=== PATIENT | female | born 1965 | race Two or more races ===

== ENCOUNTER 2019-06-06 17:24 | Emergency (ER) | payer SELFPAY ==
[~2019-06-06] VITALS: Ht 149.9 cm; Wt 74.0 kg
[2019-06-06 18:23] LABS: BILIRUBIN,URINE NEGATIVE (NEG); CLARITY,URINE CLEAR; COLOR,URINE YELLOW; NITRITE,URINE NEGATIVE (NEG); PH,URINE 7.5; PROTEIN,URINE >=300 mg/dL (NEG-TRACE); UROBILINOGEN,URINE 0.2 mg/dL (0.2 mg/dL)
[2019-06-06 18:29] LABS: BACTERIA,URINE FEW /HPF (0-FEW); SQUAMOUS EPITHELIAL CELL,UR OCC /LPF
[2019-06-06] MEDS ORDERED: ONDANSETRON PF 4 MG/2 ML VIAL. IV ONE (19:00)
[2019-06-06] MEDS ORDERED: MORPHINE SULFATE 10 MG/ML VIAL. IV STA (19:00)
[2019-06-06] MEDS ORDERED: IV NORMAL SALINE 1000ML BAG 1,000 ML IV STA (19:01)
--- NOTE | 2019-06-06 19:12 | PHYS DOC ---
Past Medical History Past Medical History: Diabetes-Type II, High Cholesterol, Hypertension (GAEL DEL RIO APRN) Past Surgical History: , Other Additional Past Surgical Histo: eye (GAEL DEL RIO APRN) Smoking Status: Never Smoker Alcohol Use: None (GAEL DEL RIO APRN) Attending Signature I have participated in the care of this patient and I have reviewed and agree with all pertinent clinical information above including history, exam, and recommendations. (KEITH KIRKPATRICK MD) Adult General Chief Complaint Chief Complaint: ABDOMINAL PAIN HPI HPI Patient is a 53 year old female who presents with left flank pain that started on . The patient states the pain has not gone away. The patient states she has a history diabetes, hypertension, dyslipidemia. The patient states that she is on her period currently. She states that her pain is 10 out of 10 in severity when she moves and sharp. Denies additional symptoms. Denies fever, denies nausea, vomiting, diarrhea. Complete ROS were reviewed and found to be within normal limits, except as documented in the HPI (GAEL DEL RIO APRN) Current Medications Current Medications Current Medications Medications (Trade) Dose Ordered Sig/Tg Start Time Stop Time Status Last Admin Dose Admin Info (CONTRAST GIVEN -- Rx MONITORING) 1 each PRN DAILY PRN 06/06/19 20:15 06/06/19 21:39 DC Iohexol (Omnipaque 300 Mg/ml) 60 ml 1X ONCE 06/06/19 20:15 06/06/19 20:16 DC 06/06/19 20:22 60 ML Morphine Sulfate (Morphine Sulfate) 5 mg 1X STAT 06/06/19 19:00 06/06/19 19:07 DC 06/06/19 19:18 5 MG Ondansetron HCl (Zofran) 4 mg 1X ONCE 06/06/19 19:00 06/06/19 19:07 DC 06/06/19 19:18 4 MG Sodium Chloride 1,000 ml @ 1,000 mls/hr 1X STAT 06/06/19 19:01 06/06/19 20:00 DC 06/06/19 19:17 1,000 MLS/HR (KEITH KIRKPATRICK MD) Allergies Allergies Allergies Coded Allergies Type Severity Reaction Last Updated Verified No Known Drug Allergies 06/06/19 No (KEITH KIRKPATRICK MD) Physical Exam Physical Exam Constitutional: Well developed, well nourished, no acute distress, non-toxic appearance. [] HENT: Normocephalic, atraumatic, bilateral external ears normal, oropharynx moist, no oral exudates, nose normal. [] Eyes: PERRLA, EOMI, conjunctiva normal, no discharge. [] Neck: Normal range of motion, no tenderness, supple, no stridor. [] Cardiovascular:Heart rate regular rhythm, no murmur [] Lungs & Thorax: Bilateral breath sounds clear to auscultation [] Abdomen: Bowel sounds normal, soft, tenderness to L flank, no masses, no pulsatile masses. [] Skin: Warm, dry, no erythema, no rash. [] Back: No tenderness, no CVA tenderness. [] Extremities: No tenderness, no cyanosis, no clubbing, ROM intact, no edema. [] Neurologic: Alert and oriented X 3, normal motor function, normal sensory function, no focal deficits noted. [] Psychologic: Affect normal, judgement normal, mood normal. [] (GAEL DEL RIO APRN) Current Patient Data Vital Signs Vital Signs Date Time Temp Pulse Resp B/P (MAP) Pulse Ox O2 Delivery O2 Flow Rate FiO2 06/06/19 21:32 78 18 189/86 (120) 94 Room Air 06/06/19 17:55 98.0 98.0 (KEITH KIRKPATRICK MD) Lab Values Laboratory Tests Test 06/06/19 17:57 06/06/19 19:15 06/06/19 19:45 Urine Color Yellow Urine Clarity Clear Urine pH 7.5 Urine Specific [place] 1.010 Urine Protein >=300 mg/dL (NEG-TRACE) Urine Glucose (UA) >=1000 mg/dL (NEG) Urine Ketones (Stick) Negative mg/dL (NEG) Urine Blood Moderate (NEG) Urine Nitrite Negative (NEG) Urine Bilirubin Negative (NEG) Urine Urobilinogen Dipstick 0.2 mg/dL (0.2 mg/dL) Urine Leukocyte Esterase Negative (NEG) Urine RBC 3-5 /HPF (0-2) Urine WBC 1-4 /HPF (0-4) Urine Squamous Epithelial Cells Occ /LPF Urine Bacteria Few /HPF (0-FEW) White Blood Count 8.6 x10^3/uL (4.0-11.0) Red Blood Count 4.11 x10^6/uL (3.50-5.40) Hemoglobin 11.2 g/dL (12.0-15.5) L Hematocrit 33.0 % (36.0-47.0) L Mean Corpuscular Volume 80 fL (79-100) Mean Corpuscular Hemoglobin 27 pg (25-35) Mean Corpuscular Hemoglobin Concent 34 g/dL (31-37) Red Cell Distribution Width 13.5 % (11.5-14.5) Platelet Count 413 x10^3/uL (140-400) H Neutrophils (%) (Auto) 62 % (31-73) Lymphocytes (%) (Auto) 25 % (24-48) Monocytes (%) (Auto) 8 % (0-9) Eosinophils (%) (Auto) 3 % (0-3) Basophils (%) (Auto) 1 % (0-3) Neutrophils # (Auto) 5.3 x10^3/uL (1.8-7.7) Lymphocytes # (Auto) 2.2 x10^3/uL (1.0-4.8) Monocytes # (Auto) 0.7 x10^3/uL (0.0-1.1) Eosinophils # (Auto) 0.3 x10^3/uL (0.0-0.7) Basophils # (Auto) 0.1 x10^3/uL (0.0-0.2) Sodium Level 135 mmol/L (136-145) L Potassium Level 4.6 mmol/L (3.5-5.1) Chloride Level 100 mmol/L (98-107) Carbon Dioxide Level 29 mmol/L (21-32) Anion Gap 6 (6-14) Blood Urea Nitrogen 17 mg/dL (7-20) Creatinine 1.0 mg/dL (0.6-1.0) Estimated GFR (Cockcroft-Gault) 58.5 BUN/Creatinine Ratio 17 (6-20) Glucose Level 267 mg/dL (70-99) H Calcium Level 9.2 mg/dL (8.5-10.1) Total Bilirubin 0.3 mg/dL (0.2-1.0) Aspartate Amino Transferase (AST) 11 U/L (15-37) L Alanine Aminotransferase (ALT) 13 U/L (14-59) L Alkaline Phosphatase 88 U/L (46-116) Total Protein 5.9 g/dL (6.4-8.2) L Albumin 2.1 g/dL (3.4-5.0) L Albumin/Globulin Ratio 0.6 (1.0-1.7) L Lipase 142 U/L (73-393) Laboratory Tests 06/06/19 19:15 Laboratory Tests 06/06/19 19:45 (KEITH KIRKPATRICK MD) EKG EKG [] (GAEL DEL RIO APRN) Radiology/Procedures Radiology/Procedures [][facility] [address] [place] [address] IMAGING REPORT Signed PATIENT: LEXI RODRÍGUEZ ACCOUNT: [id number] : 1965 LOCATION: ER AGE: 53 SEX: F EXAM STATUS: REG ER ORD. PHYSICIAN: GAEL DEL RIO APRN REASON: L flank pain, LLQ PAIN PROCEDURE: CT ABD PELV W/ IV CONTRST ONLY EXAM: CT Abdomen and Pelvis with IV contrast CLINICAL HISTORY: Left flank pain, left lower quadrant pain. COMPARISON: none TECHNIQUE: Helical CT of the abdomen and pelvis was performed following the administration of intravenous contrast. Axial, coronal and sagittal reformatted images were generated. PQRS compliance statement - One or more of the following individualized dose reduction techniques were utilized for this study: 1. Automated exposure control 2. Adjustment of the mA and/or kV according to patient size 3. Use of iterative reconstruction technique FINDINGS: Lower chest: Linear opacities in the lower lobes likely scarring/atelectasis. Abdomen and Pelvis: Focal low-attenuation along calcified ligament likely focal fatty infiltration. Gallbladder is normal. No biliary duct dilatation. Spleen is unremarkable. Adrenal glands are normal. Pancreas is normal. Symmetric nephrograms. Subcentimeter hypodense right lower pole renal lesion is too small to accurately characterize. No hydronephrosis or hydroureter. Punctate nonobstructing left upper pole renal calculus. Bladder is markedly distended. Calcified uterine fibroid is seen. Uterus appears enlarged. Moderate to large volume colonic stool content is seen. No small or large bowel dilatation. No evidence for bowel obstruction. No abdominal or pelvic ascites. No abdominal or pelvic lymphadenopathy. Aortic calcifications are noted. Small fat-containing periumbilical hernia is seen. Bones: No aggressive osseous lesion is seen. Multiple degenerative changes of spine are seen. IMPRESSION: 1. Punctate nonobstructing left upper pole renal calculus. No hydronephrosis or hydroureter. No definite ureteral calculus. 2. Moderate to large volume colonic stool content. No bowel obstruction. 3. Bladder is markedly distended, this can be correlated for possible voluntary or involuntary causes of urinary retention. 4. Uterus appears enlarged with calcified uterine fibroid. Electronically signed by: Bartolo Cabrera MD (06/06/2019 8:37 PM) [id number] DICTATED and SIGNED BY: BARTOLO CABRERA MD DATE: 06/06/192036 (GAEL DEL RIO APRN) Course & Med Decision Making Course & Med Decision Making Pertinent Labs and Imaging studies reviewed. (See chart for details) Will get labs, UA, and CT scan. IMPRESSION: 1. Punctate nonobstructing left upper pole renal calculus. No hydronephrosis or hydroureter. No definite ureteral calculus. 2. Moderate to large volume colonic stool content. No bowel obstruction. 3. Bladder is markedly distended, this can be correlated for possible voluntary or involuntary causes of urinary retention. 4. Uterus appears enlarged with calcified uterine fibroid. Electronically signed by: Bartolo Cabrera MD (06/06/2019 8:37 PM) [id number] (GAEL DEL RIO APRN) Dragon Disclaimer Dragon Disclaimer This electronic medical record was generated, in whole or in part, using a voice recognition dictation system. (GAEL DEL RIO APRN) Departure Departure Impression: Primary Impression: Constipation Additional Impression: Uterine fibroid Disposition: 01 HOME, SELF-CARE Condition: STABLE Referrals: YAAKOV BARR (PCP) Patient Instructions: Constipation, Adult, Uterine Fibroid, [id number] Additional Instructions: Thank you for visiting [facility]. We appreciate you trusting us with your care. If any additional problems come up don't hesitate to return to visit us. Please follow up with your primary care provider so they can plan additional care if needed and know about the problem that you had. If symptoms worsen come back to the Emergency Department. Any concerning symptoms that start such as chest pain, shortness of air, weakness or numbness on one side of the body, running high fevers or any other concerning symptoms return to the ER. Please follow up with OB regarding Uterine Fibroid. Scripts Polyethylene Glycol 3350 (MIRALAX) 119 Gm Powder 17 GM PO DAILY PRN for CONSTIPATION, #255 GM 0 Refills dissolve in water Prov: GAEL DEL RIO APRN 06/06/19 Problem Qualifiers Primary Impression: Constipation Constipation type: unspecified constipation type Qualified Codes: K59.00 - Constipation, unspecified Additional Impression: Uterine fibroid Uterine leiomyoma location: unspecified location Qualified Codes: D25.9 - Leiomyoma of uterus, unspecified GAEL DEL RIO APRN Jun 06, 2019 19:12 KEITH KIRKPATRICK MD Jun 06, 2019 22:14
[2019-06-06 19:28] LABS: BASO # 0.1 x10^3/uL (0.0-0.2); BASO % 1 % (0-3); EOS # 0.3 x10^3/uL (0.0-0.7); EOS % 3 % (0-3); HEMOGLOBIN 11.2 g/dL (12.0-15.5); LYMPH # 2.2 x10^3/uL (1.0-4.8); LYMPH % 25 % (24-48); MEAN CORPUSCULAR HEMOGLOBIN 27 pg (25-35); MEAN CORPUSCULAR HGB CONC 34 g/dL (31-37); MEAN CORPUSCULAR VOLUME 80 fL (79-100); MONO # 0.7 x10^3/uL (0.0-1.1); MONO % 8 % (0-9); NEUT # 5.3 x10^3/uL (1.8-7.7); NEUT % 62 % (31-73); PLATELET COUNT 413 x10^3/uL (140-400); RED BLOOD COUNT 4.11 x10^6/uL (3.50-5.40); RED CELL DISTRIBUTION WIDTH 13.5 % (11.5-14.5); WHITE BLOOD COUNT 8.6 x10^3/uL (4.0-11.0)
[2019-06-06 20:03] LABS: CALCIUM 9.2 mg/dL (8.5-10.1); GFR 58.5; POTASSIUM 4.6 mmol/L (3.5-5.1)
[2019-06-06 20:08] LABS: ALBUMIN 2.1 g/dL (3.4-5.0); ALBUMIN/GLOBULIN RATIO 0.6 (1.0-1.7); TOTAL BILIRUBIN 0.3 mg/dL (0.2-1.0); TOTAL PROTEIN 5.9 g/dL (6.4-8.2)
[2019-06-06] MEDS ORDERED: IOHEXOL 300 MG/ML 100ML VIAL. IV ONE (20:15)
[2019-06-06] MEDS ORDERED: CONTRAST GIVEN. MC PRN (20:15)
--- NOTE | 2019-06-06 20:40 | RAD ---
EXAM: CT Abdomen and Pelvis with IV contrast CLINICAL HISTORY: Left flank pain, left lower quadrant pain. COMPARISON: none TECHNIQUE: Helical CT of the abdomen and pelvis was performed following the administration of intravenous contrast. Axial, coronal and sagittal reformatted images were generated. PQRS compliance statement - One or more of the following individualized dose reduction techniques were utilized for this study: 1. Automated exposure control 2. Adjustment of the mA and/or kV according to patient size 3. Use of iterative reconstruction technique FINDINGS: Lower chest: Linear opacities in the lower lobes likely scarring/atelectasis. Abdomen and Pelvis: Focal low-attenuation along calcified ligament likely focal fatty infiltration. Gallbladder is normal. No biliary duct dilatation. Spleen is unremarkable. Adrenal glands are normal. Pancreas is normal. Symmetric nephrograms. Subcentimeter hypodense right lower pole renal lesion is too small to accurately characterize. No hydronephrosis or hydroureter. Punctate nonobstructing left upper pole renal calculus. Bladder is markedly distended. Calcified uterine fibroid is seen. Uterus appears enlarged. Moderate to large volume colonic stool content is seen. No small or large bowel dilatation. No evidence for bowel obstruction. No abdominal or pelvic ascites. No abdominal or pelvic lymphadenopathy. Aortic calcifications are noted. Small fat-containing periumbilical hernia is seen. Bones: No aggressive osseous lesion is seen. Multiple degenerative changes of spine are seen. IMPRESSION: 1. Punctate nonobstructing left upper pole renal calculus. No hydronephrosis or hydroureter. No definite ureteral calculus. 2. Moderate to large volume colonic stool content. No bowel obstruction. 3. Bladder is markedly distended, this can be correlated for possible voluntary or involuntary causes of urinary retention. 4. Uterus appears enlarged with calcified uterine fibroid. Electronically signed by: Bartolo Musa MD (06/06/2019 8:37 PM) [id number]
[2019-06-06] MEDS ORDERED: POLY119P4 PO (21:28)
[2019-06-06 21:32] VITALS: BP 189/86
== END 2019-06-06 21:35 | disposition home or self-care (01) ==
LOC: ER 17:24
DX: K59.00 Constipation, unspecified (principal); D25.9 Leiomyoma of uterus, unspecified; R10.32 Left lower quadrant pain; E11.9 Type 2 diabetes mellitus without complications; E78.00 Pure hypercholesterolemia, unspecified; I10 Essential (primary) hypertension; Z98.890 Other specified postprocedural states
CPT/HCPCS: 36415; 74177; 80053; 81001; 83690; 85025; 96374; 96375; 99285; J2270; J2405; J7030; Q9967

== ENCOUNTER → 2019-06-13 | Outpatient (CLI) | payer SELFPAY ==
[2019-06-06 21:32] VITALS: BP 189/86
[~2019-06-13] MED LIST: POLY119P4 PO
[2019-06-13 11:35] LABS: BASO # 0.1 x10^3/uL (0.0-0.2); BASO % 1 % (0-3); EOS # 0.3 x10^3/uL (0.0-0.7); EOS % 4 % (0-3); HEMATOCRIT 32.4 % (36.0-47.0); HEMOGLOBIN 10.7 g/dL (12.0-15.5); LYMPH # 1.3 x10^3/uL (1.0-4.8); LYMPH % 18 % (24-48); MEAN CORPUSCULAR HEMOGLOBIN 27 pg (25-35); MEAN CORPUSCULAR HGB CONC 33 g/dL (31-37); MEAN CORPUSCULAR VOLUME 81 fL (79-100); MONO # 0.6 x10^3/uL (0.0-1.1); MONO % 8 % (0-9); NEUT # 5.1 x10^3/uL (1.8-7.7); NEUT % 70 % (31-73); PLATELET COUNT 441 x10^3/uL (140-400); RED BLOOD COUNT 3.99 x10^6/uL (3.50-5.40); RED CELL DISTRIBUTION WIDTH 13.6 % (11.5-14.5); WHITE BLOOD COUNT 7.3 x10^3/uL (4.0-11.0)
[2019-06-13 11:49] LABS: FREE T4 1.08 ng/dL (0.76-1.46); THYROID STIM HORMONE (TSH) 4.195 uIU/mL (0.358-3.74)
== END | disposition home or self-care (01) ==
LOC: LAB 10:57
PROVIDERS: ATTEND Obstetrics & Gynecology
DX: D25.9 Leiomyoma of uterus, unspecified (principal)
CPT/HCPCS: 36415; 84439; 84443; 85025

== ENCOUNTER → 2019-06-21 | Outpatient (CLI) | payer SELFPAY ==
[2019-06-06 21:32] VITALS: BP 189/86
--- NOTE | 2019-06-21 17:25 | RAD ---
PELVIS W/TV History: Excessive menstruation. Fibroid uterus Comparison: CT June 06, 2019. Technique: Grayscale and color Doppler imaging of the pelvis was performed using transabdominal and transvaginal technique. Findings: The uterus measures 14.0 x 8.2 x 7.6 cm in length. Multiple uterine fibroids with heterogeneous appearance. Calcified myometrial fibroid measures 4.4 x 3.4 x 3.4 cm. Hypoechoic fibroid measures 3.7 x 3.2 x 3.8 cm. The endometrial stripe measures 4 mm. Nabothian cysts identified. Right ovary measures 5.5 x 4.1 x 3.3 cm. Right ovarian cystic lesion with internal echoes measures 2.7 x 2.2 x 2.3 cm. Additional right ovarian cystic lesion with septation measures 2.9 x 2.4 x 2.2 cm. Left ovary not identified due to overlying bowel gas and positioning. No adnexal mass or fluid collection. IMPRESSION: 1. Enlarged uterus with multiple fibroids. 2. Right ovarian complicated cystic lesion, may represent hemorrhagic cyst. Recommend follow-up to ensure resolution. Electronically signed by: Caleb Ariza DO (06/21/2019 5:22 PM) [id number]
== END | disposition home or self-care (01) ==
LOC: US 10:42
PROVIDERS: ATTEND Obstetrics & Gynecology
DX: D25.9 Leiomyoma of uterus, unspecified (principal); N85.2 Hypertrophy of uterus
CPT/HCPCS: 76830; 76856

== ENCOUNTER 2020-01-06 10:56 | Emergency (ER) | payer SELFPAY ==
[~2020-01-06] VITALS: Ht 149.9 cm; Wt 72.0 kg
[~2020-01-06 10:56] MED LIST changes: +GEMF600T8 PO; +GLIP10TA13 PO; +INSU100I41 SQ; +LISI1TAB37 PO; +METF10007 PO
--- NOTE | 2020-01-06 11:26 | PHYS DOC ---
Past Medical History Past Medical History: Diabetes-Type II, High Cholesterol, Hypertension Past Surgical History: , Other Additional Past Surgical Histo: eye Smoking Status: Former Smoker Alcohol Use: None General Adult EDM: Chief Complaint: ABDOMINAL PAIN HPI: HPI: Patient is a 54 year old female with history of hypertension, high cholesterol, diabetes type 2 who presents the ED today complaining of 8 out of 10 right sided abdominal pain intermittently for the last 3 weeks. Patient is also complaining of intermittent episodes of nausea and vomiting last night. She states her symptoms are worse after eating. Denies anything specifically relieving her symptoms. She states she was seen by the PCP 3 weeks ago and was treated for UTI but the abdominal pain did not subside. Describes the pain as sharp. Patient is Tongan-speaking and the daughter is interpreting Review of Systems: Review of Systems: Constitutional: Denies fever or chills. [] Eyes: Denies change in visual acuity. [] HENT: Denies nasal congestion or sore throat. [] Respiratory: Denies cough or shortness of breath. [] Cardiovascular: Denies chest pain or edema. [] GI: Reports right sided abdominal pain, nausea, vomiting, denies bloody stools or diarrhea. [] : Denies dysuria. [] Musculoskeletal: Denies back pain or joint pain. [] Integument: Denies rash. [] Neurologic: Denies headache, focal weakness or sensory changes. [] Endocrine: Denies polyuria or polydipsia. [] Lymphatic: Denies swollen glands. [] Psychiatric: Denies depression or anxiety. [] Heart Score: Risk Factors: Risk Factors: DM, Current or recent (<one month) smoker, HTN, HLP, family history of CAD, obesity. Risk Scores: Score 0 - 3: 2.5% MACE over next 6 weeks - Discharge Home Score 4 - 6: 20.3% MACE over next 6 weeks - Admit for Clinical Observation Score 7 - 10: 72.7% MACE over next 6 weeks - Early Invasive Strategies Current Medications: Current Medications Medications (Trade) Dose Ordered Sig/Tg Start Time Stop Time Status Last Admin Dose Admin Famotidine (Pepcid Vial) 20 mg 1X ONCE 01/06/20 11:30 01/06/20 11:31 UNV Morphine Sulfate (Morphine Sulfate) 5 mg 1X ONCE 9/6/20 11:30 01/06/20 11:31 UNV Ondansetron HCl (Zofran) 4 mg 1X ONCE 01/06/20 11:30 01/06/20 11:31 UNV Allergies: Allergies: Allergies Coded Allergies Type Severity Reaction Last Updated Verified No Known Drug Allergies 06/06/19 No Physical Exam: PE: Constitutional: Well developed, well nourished, no acute distress, non-toxic appearance. [] HENT: Normocephalic, atraumatic, bilateral external ears normal, oropharynx moist, no oral exudates, nose normal. [] Eyes: PERRLA, EOMI, conjunctiva normal, no discharge. [] Neck: Normal range of motion, no tenderness, supple, no stridor. [] Cardiovascular:Heart rate regular rhythm, no murmur [] Lungs & Thorax: Bilateral breath sounds clear to auscultation [] Abdomen: Bowel sounds normal, soft, mild right upper quadrant tenderness with negative Wayne sign, negative psoas sign, negative obturator sign, negative Rovsing sign, patient is guarding the right upper quadrant, no masses, no pulsatile masses. [] Skin: Warm, dry, no erythema, no rash. [] Back: No tenderness, no CVA tenderness. [] Extremities: No tenderness, no cyanosis, no clubbing, ROM intact, no edema. [] Neurologic: Alert and oriented X 3, normal motor function, normal sensory function, no focal deficits noted. [] Psychologic: Affect normal, judgement normal, mood normal. [] EKG: EKG: [] Radiology/Procedures: Radiology/Procedures: []PROCEDURE: CT ABD PELV W/ IV CONTRST ONLY PQRS Compliance Statement: One or more of the following individualized dose reduction techniques were utilized for this examination: 1. Automated exposure control 2. Adjustment of the mA and/or kV according to patient size 3. Use of iterative reconstruction technique CT abdomen/pelvis with contrast 01/06/2020 2:00 PM INDICATION: Right-sided abdominal pain COMPARISON: CT abdomen/pelvis 06/06/2019 TECHNIQUE: Multiple axial CT images of the abdomen and pelvis were obtained after the intravenous administration of nonionic contrast. Coronal and sagittal reformats are provided. FINDINGS: Lung bases are clear. Heart size is within normal limits. There is small hiatal hernia. Liver, spleen, bilateral adrenal glands, pancreas and gallbladder are normal in appearance. Abdominal aorta is normal in course and caliber. No pathologically enlarged lymph nodes are identified in abdomen and pelvis. There is no free fluid or free intraperitoneal air. Small and large bowel are normal in caliber. No bowel obstruction or inflammation. Moderate amount of stool is noted throughout the colon. Appendix is normal. No pericecal inflammatory changes are identified. Kidneys enhance symmetrically. There are nonobstructing renal calculi in the left kidney measuring up to 3 mm in the superior pole left kidney. Oxygen calculi in the interpolar right kidney measure up to 2 mm. There is right urothelial enhancement extending throughout the right ureter with adjacent inflammatory changes. This is predominantly involving the upper two thirds of the right ureter. Bladder wall is mildly thickened. Suspect a tampon or gas within the vagina. Uterus is normal in appearance. Calcified uterine fibroid is identified within the fundus measuring 2.6 x 2.3 cm. Follicular changes identified within the adnexa with a left adnexal cyst measuring up to 3.2 cm suggestive of a dominant follicle. No suspicious osseous abnormality is identified. IMPRESSION: 1. Findings are suggestive of right-sided pyelitis. Correlate with any signs and symptoms of pyelonephritis. Urinary bladder enhancement predominantly involves the upper two thirds of the ureter. Nonobstructive bilateral renal calculi are present. 2. No bowel obstruction or inflammation. Appendix is normal. Electronically signed by: China Druán MD (01/06/2020 3:01 PM) [facility] DICTATED and SIGNED BY: CHINA DURÁN MD DATE: 01/06/20 1501 PROCEDURE: ABDOMEN LTD ABDOMEN LTD History: Reason: RUQ pain / Spl. Instructions: / History: Comparison: None. Technique: Transabdominal ultrasound images are obtained of the right upper quadrant. Findings: Visualized pancreas is is not well seen due to overlying bowel gas Liver is normal in echogenicity. Right hepatic lobe measures 16.6 cm. Portal flow is hepatopedal. Gallbladder has an unremarkable appearance. Common bile duct measures 2.2 mm in diameter. The right kidney measures 11.6 x 4.9 x 4.8 cm. No hydronephrosis. IVC and aorta not well seen due to overlying bowel gas IMPRESSION: 1. Unremarkable right upper quadrant ultrasound. Electronically signed by: Caleb Ariza DO (01/06/2020 1:36 PM) [facility] DICTATED and SIGNED BY: CALEB ARIZA DO DATE: 01/06/20 2967 Course & Med Decision Making: Course & Med Decision Making Pertinent Labs and Imaging studies reviewed. (See chart for details) This is a 54-year-old female patient presenting to the ED today with right sided abdominal pain for three weeks. CBC with a normal WBC, CMP with glucose of 523, anion gap is 8 given insulin and IV fluids. Potassium is 5.3 but noted to be hemolyzed Right upper quadrant abdominal ultrasound was negative for any acute findings. CT of the abdomen and pelvic was noted for right pyelonephritis. Patient was given Rocephin IV in the ED. I offered her admission, she refused. She has been given a liter of fluids and states she feels better. She was discharged with instructions to make sure she is using her insulin as well as taking her metformin. She was also given prescription for Cipro for pyelonephritis. Given prescription for Zofran. Follow-up with her PCP in the next 1 week Abel Disclaimer: Abel Disclaimer: This electronic medical record was generated, in whole or in part, using a voice recognition dictation system. Departure Departure Impression: Primary Impression: Hyperglycemia Additional Impression: Pyelonephritis Disposition: 01 HOME, SELF-CARE Condition: STABLE Referrals: YAAKOV BARR (PCP) Follow-up next week of this week Patient Instructions: Hyperglycemia, Pyelonephritis, Adult, [id number] Additional Instructions: You were evaluated in the emergency room for abdominal pain and noted to have pyelonephritis. This is a kidney infection. We will put you on antibiotics, ensure you complete them. Your blood sugars are running high at 523, ensure you are using your insulin and taking metformin. Follow-up with your doctor in the course of this week or next week. Scripts Ondansetron (ONDANSETRON ODT) 4 Mg Tab.rapdis 1 TAB PO PRN Q6-8HRS, #16 TAB Prov: MARILU BELTRE APRN 01/06/20 Ciprofloxacin Hcl (CIPRO) 500 Mg Tablet 1 TAB PO BID for 7 Days, #14 TAB 0 Refills Prov: MARILU BELTRE APRN 01/06/20 Justicifation of Admission Dx: Justifications for Admission: Justification of Admission Dx: N/A MARILU BELTRE APRN Jan 06, 2020 11:26
[2020-01-06] MEDS ORDERED: FAMOTIDINE 20 MG/2 ML VIAL IVP ONE (11:30)
[2020-01-06] MEDS ORDERED: MORPHINE SULFATE 10 MG/ML VIAL. IV ONE (11:30)
[2020-01-06] MEDS ORDERED: ONDANSETRON PF 4 MG/2 ML VIAL. IVP ONE (11:30)
[2020-01-06 11:44] LABS: BASO # 0.1 x10^3/uL (0.0-0.2); BASO % 1 % (0-3); EOS # 0.1 x10^3/uL (0.0-0.7); EOS % 1 % (0-3); HEMATOCRIT 39.4 % (36.0-47.0); HEMOGLOBIN 13.9 g/dL (12.0-15.5); LYMPH # 1.2 x10^3/uL (1.0-4.8); LYMPH % 11 % (24-48); MEAN CORPUSCULAR HEMOGLOBIN 30 pg (25-35); MEAN CORPUSCULAR HGB CONC 35 g/dL (31-37); MEAN CORPUSCULAR VOLUME 85 fL (79-100); MONO # 0.3 x10^3/uL (0.0-1.1); MONO % 3 % (0-9); NEUT # 9.3 x10^3/uL (1.8-7.7); NEUT % 84 % (31-73); PLATELET COUNT 387 x10^3/uL (140-400); RED BLOOD COUNT 4.64 x10^6/uL (3.50-5.40); RED CELL DISTRIBUTION WIDTH 13.4 % (11.5-14.5)
[2020-01-06 12:08] LABS: ALBUMIN 3.2 g/dL (3.4-5.0); ALBUMIN/GLOBULIN RATIO 0.8 (1.0-1.7); CALCIUM 10.2 mg/dL (8.5-10.1); CREATININE 1.1 mg/dL (0.6-1.0); GFR 52.2; MAGNESIUM 1.9 mg/dL (1.8-2.4); TOTAL BILIRUBIN 0.4 mg/dL (0.2-1.0)
[2020-01-06 12:12] LABS: POTASSIUM 5.3 mmol/L (3.5-5.1)
[2020-01-06 12:19] LABS: BILIRUBIN,URINE NEGATIVE (NEG); CLARITY,URINE CLEAR; COLOR,URINE YELLOW; NITRITE,URINE NEGATIVE (NEG); PH,URINE 5.5 (<5.0-8.0); PROTEIN,URINE >=300 mg/dL (NEG-TRACE); UROBILINOGEN,URINE 0.2 mg/dL (0.2 mg/dL)
[2020-01-06 12:26] LABS: BARBITURATES NEG (NEG); BENZODIAZEPINES NEG (NEG); CANNABINOIDS NEG (NEG); COCAINE NEG (NEG); METHADONE NEG (NEG); OPIATES NEG (NEG); PHENCYCLIDINE NEG (NEG)
[2020-01-06 12:32] LABS: SQUAMOUS EPITHELIAL CELL,UR MOD /LPF
[2020-01-06 12:33] LABS: BACTERIA,URINE MODERATE /HPF (0-FEW)
[2020-01-06 12:34] LABS: AMPHETAMINE/METHAMPHETAMINE NEG (NEG)
[2020-01-06] MEDS ORDERED: INSULIN REGULAR 100 UNIT/ML 3ML VIAL. IV ONE (13:15)
--- NOTE | 2020-01-06 13:39 | RAD ---
ABDOMEN LTD History: Reason: RUQ pain / Spl. Instructions: / History: Comparison: None. Technique: Transabdominal ultrasound images are obtained of the right upper quadrant. Findings: Visualized pancreas is is not well seen due to overlying bowel gas Liver is normal in echogenicity. Right hepatic lobe measures 16.6 cm. Portal flow is hepatopedal. Gallbladder has an unremarkable appearance. Common bile duct measures 2.2 mm in diameter. The right kidney measures 11.6 x 4.9 x 4.8 cm. No hydronephrosis. IVC and aorta not well seen due to overlying bowel gas IMPRESSION: 1. Unremarkable right upper quadrant ultrasound. Electronically signed by: Caleb Ariza DO (01/06/2020 1:36 PM) [facility]
[2020-01-06] MEDS ORDERED: CONTRAST GIVEN. MC PRN (14:15)
[2020-01-06] MEDS ORDERED: IOHEXOL 300 MG/ML 100ML VIAL. IV ONE (14:15)
--- NOTE | 2020-01-06 15:04 | RAD ---
PQRS Compliance Statement: One or more of the following individualized dose reduction techniques were utilized for this examination: 1. Automated exposure control 2. Adjustment of the mA and/or kV according to patient size 3. Use of iterative reconstruction technique CT abdomen/pelvis with contrast 01/06/2020 2:00 PM INDICATION: Right-sided abdominal pain COMPARISON: CT abdomen/pelvis 06/06/2019 TECHNIQUE: Multiple axial CT images of the abdomen and pelvis were obtained after the intravenous administration of nonionic contrast. Coronal and sagittal reformats are provided. FINDINGS: Lung bases are clear. Heart size is within normal limits. There is small hiatal hernia. Liver, spleen, bilateral adrenal glands, pancreas and gallbladder are normal in appearance. Abdominal aorta is normal in course and caliber. No pathologically enlarged lymph nodes are identified in abdomen and pelvis. There is no free fluid or free intraperitoneal air. Small and large bowel are normal in caliber. No bowel obstruction or inflammation. Moderate amount of stool is noted throughout the colon. Appendix is normal. No pericecal inflammatory changes are identified. Kidneys enhance symmetrically. There are nonobstructing renal calculi in the left kidney measuring up to 3 mm in the superior pole left kidney. Oxygen calculi in the interpolar right kidney measure up to 2 mm. There is right urothelial enhancement extending throughout the right ureter with adjacent inflammatory changes. This is predominantly involving the upper two thirds of the right ureter. Bladder wall is mildly thickened. Suspect a tampon or gas within the vagina. Uterus is normal in appearance. Calcified uterine fibroid is identified within the fundus measuring 2.6 x 2.3 cm. Follicular changes identified within the adnexa with a left adnexal cyst measuring up to 3.2 cm suggestive of a dominant follicle. No suspicious osseous abnormality is identified. IMPRESSION: 1. Findings are suggestive of right-sided pyelitis. Correlate with any signs and symptoms of pyelonephritis. Urinary bladder enhancement predominantly involves the upper two thirds of the ureter. Nonobstructive bilateral renal calculi are present. 2. No bowel obstruction or inflammation. Appendix is normal. Electronically signed by: Liz Kearns MD (01/06/2020 3:01 PM) [facility]
[2020-01-06] MEDS ORDERED: cefTRIAXone IV Push 1 GM VIAL. IVP ONE (15:15)
[2020-01-06 15:25] VITALS: BP 135/62
[2020-01-06] MEDS ORDERED: CIPR500T94 PO (15:38)
[2020-01-06] MEDS ORDERED: ONDA4TAB12 PO (15:38)
== END 2020-01-06 15:55 | disposition home or self-care (01) ==
LOC: ER 10:56
DX: N12 Tubulo-interstitial nephritis, not specified as acute or chronic (principal); E11.65 Type 2 diabetes mellitus with hyperglycemia; R10.11 Right upper quadrant pain; R11.2 Nausea with vomiting, unspecified; E78.00 Pure hypercholesterolemia, unspecified; I10 Essential (primary) hypertension; Z98.890 Other specified postprocedural states; Z87.891 Personal history of nicotine dependence
CPT/HCPCS: 36415; 74177; 76705; 80053; 80307; 81001; 83690; 83735; 85025; 87086; 96374; 96375; 99285; G0480; J0696; J1815; J2270; J2405; J3490; Q9967

== ENCOUNTER 2021-04-17 01:13 | Emergency (ER) | payer SELFPAY ==
[~2021-04-17] VITALS: Ht 149.9 cm; Wt 73.7 kg
[~2021-04-17 01:13] MED LIST changes: +CIPR500T94 PO; +GEMF600T20 PO; -GEMF600T8 PO; +ONDA4TAB12 PO
[2021-04-17 03:05] LABS: BASO # 0.1 x10^3/uL (0.0-0.2); BASO % 1 % (0-3); EOS # 0.4 x10^3/uL (0.0-0.7); EOS % 4 % (0-3); HEMATOCRIT 32.6 % (36.0-47.0); HEMOGLOBIN 11.1 g/dL (12.0-15.5); LYMPH # 1.4 x10^3/uL (1.0-4.8); LYMPH % 16 % (24-48); MEAN CORPUSCULAR HEMOGLOBIN 29 pg (25-35); MEAN CORPUSCULAR HGB CONC 34 g/dL (31-37); MEAN CORPUSCULAR VOLUME 84 fL (79-100); MONO # 0.6 x10^3/uL (0.0-1.1); MONO % 7 % (0-9); NEUT # 6.8 x10^3/uL (1.8-7.7); NEUT % 73 % (31-73); PLATELET COUNT 324 x10^3/uL (140-400); RED CELL DISTRIBUTION WIDTH 13.6 % (11.5-14.5); WHITE BLOOD COUNT 9.4 x10^3/uL (4.0-11.0)
[2021-04-17 03:12] LABS: BILIRUBIN,URINE NEGATIVE (NEG); CLARITY,URINE CLEAR; COLOR,URINE YELLOW; NITRITE,URINE NEGATIVE (NEG); PROTEIN,URINE >=300 mg/dL (NEG-TRACE); UROBILINOGEN,URINE 0.2 mg/dL (0.2 mg/dL)
[2021-04-17 03:17] LABS: CALCIUM 8.7 mg/dL (8.5-10.1); CREATININE 1.8 mg/dL (0.6-1.0); GFR 29.4; POTASSIUM 3.9 mmol/L (3.5-5.1)
[2021-04-17 03:22] LABS: BACTERIA,URINE FEW /HPF (0-FEW)
[2021-04-17 03:23] LABS: AMORPHOUS SEDIMENT,UR PRESENT /HPF; GRANULAR CASTS,URINE OCCASIONAL /HPF; HYALINE CASTS, URINE FEW /HPF
[2021-04-17 03:23] LABS: ALBUMIN 2.6 g/dL (3.4-5.0); ALBUMIN/GLOBULIN RATIO 0.7 (1.0-1.7); TOTAL BILIRUBIN 0.5 mg/dL (0.2-1.0); TOTAL PROTEIN 6.4 g/dL (6.4-8.2)
[2021-04-17] MEDS ORDERED: MORPHINE SULFATE 4 MG/ML INJ. IVP ONE (03:30)
[2021-04-17] MEDS ORDERED: ONDANSETRON PF 4 MG/2 ML VIAL. IVP ONE (03:30)
--- NOTE | 2021-04-17 04:00 | RAD ---
CT ABDOMEN+PELVIS WO INDICATION: llq pain EXAM: Noncontrast CT of the abdomen and pelvis. Coronal and sagittal reformatted images were perform ed. PQRS compliance statement: One or more of the following individualized dose reduction techniques were utilized for this examinat ion: 1. Automated exposure control 2. Adjustment of the mA and/or kV according to patient size 3. Use of iterative reconstruction technique COMPARISON: 01/06/2020 FINDINGS: No free air, free fluid, or fluid collection. Lower chest: The visualized lower lungs are aerated. No pleural or pericardial effusion. ABDOMEN: Liver: The noncontrast liver is homogeneous in attenuation. Gallbladder and biliary: Normal gallbladder without radiopaque stone. Normal caliber bile ducts. Spleen: Normal spleen. Pancreas: The noncontrast pancreas is homogeneous in attenuation without peripancreatic inflammatory changes. Adrenal glands: Normal adrenal glands. Kidneys and ureters: No hydronephrosis. Nonobstructive bilateral renal calculi. GI tract: The stomach is decompressed and poorly evaluated. Normal caliber small bowel and colon. Nor mal appendix. Vascular structures: Normal caliber abdominal aorta. Lymph nodes: No lymphadenopathy in the abdomen or pelvis. PELVIS: Genitourinary system: Circumferential bladder wall thickening. Partially distended urinary bladder. E nlarged myomatous uterus SKELETAL STRUCTURES AND SOFT TISSUES: No fracture or destructive lesion in the visualized skeleton. IMPRESSION: 1. Circumferential bladder wall thickening, which could be due to underdistention or potentially cyst itis. Consider urinalysis. 2. Enlarged myomatous uterus. Electronically signed by: Garth Valladares MD (04/17/2021 3:58 AM) [facility]
[2021-04-17] MEDS ORDERED: CEFD300C PO (04:08)
--- NOTE | 2021-04-17 04:15 | PHYS DOC ---
Past Medical History Past Medical History: Diabetes-Type II, High Cholesterol, Hypertension Past Surgical History: , Other Additional Past Surgical Histo: TOE AMPUTATION Smoking Status: Never Smoker Alcohol Use: None General Adult EDM: Chief Complaint: GI PROBLEM HPI: HPI: Patient is a 55 year old female with history of diabetes, HTN, HLD who presents with left lower quadrant pain for the past 2 days. Radiates slightly to the left flank. Associated with some painful urination and diarrhea. Denies significant nausea or vomiting. Has had chills, but no fever measured. Denies blood in the urine, blood in stool. Review of Systems: Review of Systems: Constitutional: Reports chills. Denies fever. Eyes: Denies change in visual acuity. [] HENT: Denies nasal congestion or sore throat. [] Respiratory: Denies cough or shortness of breath. [] Cardiovascular: Denies chest pain or edema. [] GI: Reports left lower quadrant abdominal pain radiating to the left flank. : Reports dysuria and left flank pain. Musculoskeletal: Denies back pain or joint pain. [] Integument: Denies rash. [] Neurologic: Denies headache, focal weakness or sensory changes. [] Endocrine: Denies polyuria or polydipsia. [] Lymphatic: Denies swollen glands. [] Psychiatric: Denies depression or anxiety. [] Heart Score: C/O Chest Pain: No Current Medications: Current Medications Medications (Trade) Dose Ordered Sig/Tg Start Time Stop Time Status Last Admin Dose Admin Morphine Sulfate (Morphine Sulfate) 4 mg 1X ONCE 04/17/21 03:30 04/17/21 03:31 DC 04/17/21 03:29 4 MG Ondansetron HCl (Zofran) 4 mg 1X ONCE 04/17/21 03:30 04/17/21 03:31 DC 04/17/21 03:29 4 MG Allergies: Allergies: Allergies Coded Allergies Type Severity Reaction Last Updated Verified No Known Drug Allergies 06/06/19 No Physical Exam: PE: Constitutional: Well developed, well nourished, no acute distress, non-toxic appearance. [] HENT: Normocephalic, atraumatic, bilateral external ears normal, oropharynx moist, no oral exudates, nose normal. [] Eyes: PERRLA, EOMI, conjunctiva normal, no discharge. [] Neck: Normal range of motion, no tenderness, supple, no stridor. [] Cardiovascular:Heart rate regular rhythm, no murmur [] Lungs & Thorax: Bilateral breath sounds clear to auscultation [] Abdomen: Obese abdomen, tender in left lower quadrant. No rebound or rigidity. Skin: Warm, dry, no erythema, no rash. [] Back: No tenderness, + left CVA tenderness Extremities: No tenderness, no cyanosis, no clubbing, ROM intact, no edema. [] Neurologic: Alert and oriented X 3, normal motor function, normal sensory function, no focal deficits noted. [] Psychologic: Affect normal, judgement normal, mood normal. [] Current Patient Data: Labs: Laboratory Tests Test 04/17/21 02:37 04/17/21 03:05 White Blood Count 9.4 x10^3/uL (4.0-11.0) Red Blood Count 3.90 x10^6/uL (3.50-5.40) Hemoglobin 11.1 g/dL (12.0-15.5) L Hematocrit 32.6 % (36.0-47.0) L Mean Corpuscular Volume 84 fL (79-100) Mean Corpuscular Hemoglobin 29 pg (25-35) Mean Corpuscular Hemoglobin Concent 34 g/dL (31-37) Red Cell Distribution Width 13.6 % (11.5-14.5) Platelet Count 324 x10^3/uL (140-400) Neutrophils (%) (Auto) 73 % (31-73) Lymphocytes (%) (Auto) 16 % (24-48) L Monocytes (%) (Auto) 7 % (0-9) Eosinophils (%) (Auto) 4 % (0-3) H Basophils (%) (Auto) 1 % (0-3) Neutrophils # (Auto) 6.8 x10^3/uL (1.8-7.7) Lymphocytes # (Auto) 1.4 x10^3/uL (1.0-4.8) Monocytes # (Auto) 0.6 x10^3/uL (0.0-1.1) Eosinophils # (Auto) 0.4 x10^3/uL (0.0-0.7) Basophils # (Auto) 0.1 x10^3/uL (0.0-0.2) Sodium Level 137 mmol/L (136-145) Potassium Level 3.9 mmol/L (3.5-5.1) Chloride Level 104 mmol/L (98-107) Carbon Dioxide Level 25 mmol/L (21-32) Anion Gap 8 (6-14) Blood Urea Nitrogen 30 mg/dL (7-20) H Creatinine 1.8 mg/dL (0.6-1.0) H Estimated GFR (Cockcroft-Gault) 29.4 BUN/Creatinine Ratio 17 (6-20) Glucose Level 212 mg/dL (70-99) H Calcium Level 8.7 mg/dL (8.5-10.1) Total Bilirubin 0.5 mg/dL (0.2-1.0) Aspartate Amino Transferase (AST) 18 U/L (15-37) Alanine Aminotransferase (ALT) 37 U/L (14-59) Alkaline Phosphatase 202 U/L (46-116) H Total Protein 6.4 g/dL (6.4-8.2) Albumin 2.6 g/dL (3.4-5.0) L Albumin/Globulin Ratio 0.7 (1.0-1.7) L Urine Collection Type Unknown Urine Color Yellow Urine Clarity Clear Urine pH 6.0 (<5.0-8.0) Urine Specific [place] 1.020 (1.000-1.030) Urine Protein >=300 mg/dL (NEG-TRACE) Urine Glucose (UA) 500 mg/dL (NEG) Urine Ketones (Stick) Negative mg/dL (NEG) Urine Blood Trace (NEG) Urine Nitrite Negative (NEG) Urine Bilirubin Negative (NEG) Urine Urobilinogen Dipstick 0.2 mg/dL (0.2 mg/dL) Urine Leukocyte Esterase Negative (NEG) Urine RBC 1-2 /HPF (0-2) Urine WBC 5-10 /HPF (0-4) Urine Squamous Epithelial Cells Mod /LPF Urine Amorphous Sediment Present /HPF Urine Bacteria Few /HPF (0-FEW) Urine Hyaline Casts Few /HPF Urine Granular Casts Occasional /HPF Urine Mucus Slight /LPF Laboratory Tests 04/17/21 02:37 Laboratory Tests 04/17/21 02:37 Vital Signs: Vital Signs Date Time Temp Pulse Resp B/P (MAP) Pulse Ox O2 Delivery O2 Flow Rate FiO2 04/17/21 03:29 24 04/17/21 02:23 98.1 78 180/77 (111) 99 Room Air 98.1 EKG: EKG: [] Radiology/Procedures: Radiology/Procedures: [] Impression: [facility] [address] [place] [address] IMAGING REPORT Signed PATIENT: KRISTINA RODRÍGUEZCOUNT: [id number] : 1965 LOCATION: ER AGE: 55 SEX: F EXAM STATUS: REG ER ORD. PHYSICIAN: TAMIKO ARRIAZA MD REASON: llq pain PROCEDURE: CT ABDOMEN PELVIS WO CONTRAST CT ABDOMEN+PELVIS WO INDICATION: llq pain EXAM: Noncontrast CT of the abdomen and pelvis. Coronal and sagittal reformatted images were performed. PQRS compliance statement: One or more of the following individualized dose reduction techniques were utilized for this examination: 1. Automated exposure control 2. Adjustment of the mA and/or kV according to patient size 3. Use of iterative reconstruction technique COMPARISON: 01/06/2020 FINDINGS: No free air, free fluid, or fluid collection. Lower chest: The visualized lower lungs are aerated. No pleural or pericardial effusion. ABDOMEN: Liver: The noncontrast liver is homogeneous in attenuation. Gallbladder and biliary: Normal gallbladder without radiopaque stone. Normal caliber bile ducts. Spleen: Normal spleen. Pancreas: The noncontrast pancreas is homogeneous in attenuation without peripancreatic inflammatory changes. Adrenal glands: Normal adrenal glands. Kidneys and ureters: No hydronephrosis. Nonobstructive bilateral renal calculi. GI tract: The stomach is decompressed and poorly evaluated. Normal caliber small bowel and colon. Normal appendix. Vascular structures: Normal caliber abdominal aorta. Lymph nodes: No lymphadenopathy in the abdomen or pelvis. PELVIS: Genitourinary system: Circumferential bladder wall thickening. Partially distended urinary bladder. Enlarged myomatous uterus SKELETAL STRUCTURES AND SOFT TISSUES: No fracture or destructive lesion in the visualized skeleton. IMPRESSION: 1. Circumferential bladder wall thickening, which could be due to underdistention or potentially cystitis. Consider urinalysis. 2. Enlarged myomatous uterus. Electronically signed by: Brittni Valladares MD (04/17/2021 3:58 AM) [facility] DICTATED and SIGNED BY: BRITTNI VALLADARES MD DATE: 04/17/21 [id number] 0 Course & Med Decision Making: Course & Med Decision Making Pertinent Labs and Imaging studies reviewed. (See chart for details) Patient 55-year-old female with history of DM, HTN, HLD, CKD who presents with left lower quadrant pain radiating to the left flank for the past 2 days. There is associated diarrhea as well as dysuria. On arrival is afebrile, hemodynamically stable. Mild left lower quadrant tenderness to palpation on examination as well as left CVA tenderness to percussion. DDx included colitis, diverticulitis, UTI/pyelonephritis, kidney stone. Work-up with CT scan revealed bladder thickening and uterine fibroids. UA with trace blood, leukocyte esterase, and RBCs as well as WBCs concerning for potential urinary tract infection given her symptoms. Normal WBC and VSS, no signs of sepsis. We will treat with a course of cefdinir. Given large uterine fibroids, if they are involuting they may be causing some of her pain as well. Given COMMUNITY RECREATION COORDINATOR referral. Return precautions discussed. Dragon Disclaimer: Gracious Eloise Disclaimer: This electronic medical record was generated, in whole or in part, using a voice recognition dictation system. Departure Departure Impression: Primary Impression: Uterine myoma Additional Impressions: UTI (urinary tract infection) LLQ pain CKD (chronic kidney disease) Disposition: HOME / SELF CARE / HOMELESS Condition: STABLE Referrals: YAAKOV BARR (PCP) Schedule a follow up appointment for next week. GAEL SINGH MD Schedule an appointment to discuss your uterine fibroids Patient Instructions: Urinary Tract Infection, Uterine Fibroid, [id number] Additional Instructions: Your work-up showed concerns for a urinary tract infection. Please rock picker the antibiotic and take a full 7-day course as prescribed. It also showed uterine fibroids, that could potentially contribute to discomfort. Please follow-up with Dr. Singh of gynecology. Please see is number attached. Also please follow-up with your primary care doctor to ensure that your symptoms improve with antibiotics. If your symptoms worsen please return to the emergency department for reevaluation. Scripts Cefdinir (CEFDINIR) 300 Mg Capsule 1 CAP PO BID for 7 Days, #14 CAP 0 Refills Prov: SOFIYA,TAMIKO E MD 04/17/21 TAMIKO ARRIAZA MD Apr 17, 2021 04:15
[2021-04-17 04:45] VITALS: BP 172/80
== END 2021-04-17 04:50 | disposition home or self-care (01) ==
LOC: ER 01:13
DX: D25.9 Leiomyoma of uterus, unspecified (principal); N39.0 Urinary tract infection, site not specified; E11.22 Type 2 diabetes mellitus with diabetic chronic kidney disease; I12.9 Hypertensive chronic kidney disease with stage 1 through stage 4 chronic kidney disease, or unspecified chronic kidney disease; N18.9 Chronic kidney disease, unspecified; E78.00 Pure hypercholesterolemia, unspecified; Z98.890 Other specified postprocedural states
CPT/HCPCS: 36415; 74176; 80053; 81001; 85025; 87086; 96374; 96375; 99285; J2270; J2405

== ENCOUNTER 2021-08-29 11:48 | Inpatient (IN) | payer MEDICAID ==
[~2021-08-29] VITALS: Ht 149.9 cm; Wt 76.0 kg
[~2021-08-29 11:48] MED LIST changes: +CEFD300C PO
--- NOTE | 2021-08-29 13:02 | RAD ---
EXAMINATION: Chest radiograph. VIEWS: 1 COMPARISON: 06/29/2019 INDICATION:56 years, Female, shortness of breath. FINDINGS: Borderline cardiomegaly, worsened since prior exam. Bilateral perihilar and basilar pulmonary reticul ations. No pleural effusion or pneumothorax. No acute osseous process. Stable irregular sclerotic les ion in the right proximal humerus, may represent a chronic bone infarct. IMPRESSION: 1. Borderline cardiomegaly, worsened since prior exam. 2. Bilateral perihilar and basilar pulmonary reticulations, findings may reflect pulmonary vascular congestion, without evidence of edema. Electronically signed by: Carson Lamb MD (08/29/2021 1:00 PM) [facility]
[2021-08-29 13:14] LABS: BASO % 0 % (0-3); EOS # 0.1 x10^3/uL (0.0-0.7); EOS % 1 % (0-3); HEMOGLOBIN 7.8 g/dL (12.0-15.5); LYMPH # 1.1 x10^3/uL (1.0-4.8); LYMPH % 9 % (24-48); MEAN CORPUSCULAR HEMOGLOBIN 29 pg (25-35); MEAN CORPUSCULAR HGB CONC 34 g/dL (31-37); MEAN CORPUSCULAR VOLUME 85 fL (79-100); MONO # 0.9 x10^3/uL (0.0-1.1); MONO % 8 % (0-9); NEUT # 9.2 x10^3/uL (1.8-7.7); NEUT % 81 % (31-73); PLATELET COUNT 290 x10^3/uL (140-400); RED BLOOD COUNT 2.73 x10^6/uL (3.50-5.40); RED CELL DISTRIBUTION WIDTH 13.8 % (11.5-14.5); WHITE BLOOD COUNT 11.3 x10^3/uL (4.0-11.0)
[2021-08-29 13:28] LABS: CALCIUM 8.7 mg/dL (8.5-10.1); CREATININE 2.7 mg/dL (0.6-1.0); GFR 18.4; POTASSIUM 3.3 mmol/L (3.5-5.1)
[2021-08-29 13:34] LABS: ALBUMIN 2.2 g/dL (3.4-5.0); ALBUMIN/GLOBULIN RATIO 0.5 (1.0-1.7); TOTAL BILIRUBIN 0.5 mg/dL (0.2-1.0); TOTAL PROTEIN 6.8 g/dL (6.4-8.2)
--- NOTE | 2021-08-29 13:37 | PHYS DOC ---
Past Medical History Past Medical History: Diabetes-Type II, High Cholesterol, Hypertension Past Surgical History: , Other Additional Past Surgical Histo: TOE AMPUTATION Smoking Status: Never Smoker Alcohol Use: None General Adult EDM: Chief Complaint: LOWER EXTREMITY EDEMA HPI: HPI: Patient is a 56-year-old female that presented today with bilateral leg swelling and right foot fourth toe pain. Patient is American-speaking only and her daughter is at the bedside, daughter states that the patient has not been taking her Lasix for 1 to 2 weeks, and she has had increased bilateral leg swelling, she also states that today patient was trying to put her sock on and her toenail which was overgrown on her right foot fourth toe the toenail got caught in the sock and the patient pulled on the sock and did not realize this and it pulled on the toe nail causing it to bleed. Patient states she is short of breath with activity, she states she cannot lay flat, but does deny chest pain. Review of Systems: Review of Systems: Constitutional: Denies fever or chills. [] Eyes: Denies change in visual acuity. [] HENT: Denies nasal congestion or sore throat. [] Respiratory: Shortness of breath denies cough Cardiovascular: Bilateral leg swelling denies chest pain GI: Denies abdominal pain, nausea, vomiting, bloody stools or diarrhea. [] : Denies dysuria. [] Musculoskeletal: Denies back pain or joint pain. [] Integument: Right fourth toe nail pain Neurologic: Denies headache, focal weakness or sensory changes. [] Endocrine: Denies polyuria or polydipsia. [] Lymphatic: Denies swollen glands. [] Psychiatric: Denies depression or anxiety. [] Heart Score: C/O Chest Pain: No Risk Factors: Risk Factors: DM, Current or recent (<one month) smoker, HTN, HLP, family history of CAD, obesity. Risk Scores: Score 0 - 3: 2.5% MACE over next 6 weeks - Discharge Home Score 4 - 6: 20.3% MACE over next 6 weeks - Admit for Clinical Observation Score 7 - 10: 72.7% MACE over next 6 weeks - Early Invasive Strategies Allergies: Allergies: Allergies Coded Allergies Type Severity Reaction Last Updated Verified No Known Drug Allergies 06/06/19 No Physical Exam: PE: Constitutional: Well developed, well nourished, no acute distress, non-toxic appearance. [] HENT: Normocephalic, atraumatic, bilateral external ears normal, oropharynx moist, no oral exudates, nose normal. [] Eyes: PERRLA, EOMI, conjunctiva normal, no discharge. [] Neck: Normal range of motion, no tenderness, supple, no stridor. [] Cardiovascular:Heart rate regular rhythm, no murmur [] Lungs & Thorax: Bilateral breath sounds diminished lung sounds bilaterally Abdomen: Bowel sounds normal, soft, no tenderness, no masses, no pulsatile masses. [] Skin: Warm, dry, no erythema, no rash. [] Back: No tenderness, no CVA tenderness. [] Extremities: No tenderness, no cyanosis, no clubbing, ROM intact, 2+ pitting edema, right fourth toe nail is loose, and there is blood noted at the nail base, sensory is intact distal to the injury cap refill is less than 2 seconds. Dorsalis pedis pulses bilaterally are 2+ Neurologic: Alert and oriented X 3, normal motor function, normal sensory f unction, no focal deficits noted. [] Psychologic: Affect normal, judgement normal, mood normal. [] Current Patient Data: Labs: Laboratory Tests Test 08/29/21 12:30 White Blood Count 11.3 x10^3/uL Red Blood Count 2.73 x10^6/uL Hemoglobin 7.8 g/dL Hematocrit 23.0 % Mean Corpuscular Volume 85 fL Mean Corpuscular Hemoglobin 29 pg Mean Corpuscular Hemoglobin Concent 34 g/dL Red Cell Distribution Width 13.8 % Platelet Count 290 x10^3/uL Neutrophils (%) (Auto) 81 % Lymphocytes (%) (Auto) 9 % Monocytes (%) (Auto) 8 % Eosinophils (%) (Auto) 1 % Basophils (%) (Auto) 0 % Neutrophils # (Auto) 9.2 x10^3/uL Lymphocytes # (Auto) 1.1 x10^3/uL Monocytes # (Auto) 0.9 x10^3/uL Eosinophils # (Auto) 0.1 x10^3/uL Basophils # (Auto) 0.0 x10^3/uL Sodium Level 136 mmol/L Potassium Level 3.3 mmol/L Chloride Level 98 mmol/L Carbon Dioxide Level 26 mmol/L Anion Gap 12 Blood Urea Nitrogen 62 mg/dL Creatinine 2.7 mg/dL Estimated GFR (Cockcroft-Gault) 18.4 BUN/Creatinine Ratio 23 Glucose Level 141 mg/dL Lactic Acid Level 0.7 mmol/L Calcium Level 8.7 mg/dL Total Bilirubin 0.5 mg/dL Aspartate Amino Transf (AST/SGOT) 23 U/L Alanine Aminotransferase (ALT/SGPT) 36 U/L Alkaline Phosphatase 369 U/L Troponin I High Sensitivity 12 ng/L TY-[id number]-W-Type Natriuretic Peptide 8923 pg/mL Total Protein 6.8 g/dL Albumin 2.2 g/dL Albumin/Globulin Ratio 0.5 Laboratory Tests Test 08/29/21 12:30 White Blood Count 11.3 x10^3/uL (4.0-11.0) H Red Blood Count 2.73 x10^6/uL (3.50-5.40) L Hemoglobin 7.8 g/dL (12.0-15.5) L Hematocrit 23.0 % (36.0-47.0) L Mean Corpuscular Volume 85 fL (79-100) Mean Corpuscular Hemoglobin 29 pg (25-35) Mean Corpuscular Hemoglobin Concent 34 g/dL (31-37) Red Cell Distribution Width 13.8 % (11.5-14.5) Platelet Count 290 x10^3/uL (140-400) Neutrophils (%) (Auto) 81 % (31-73) H Lymphocytes (%) (Auto) 9 % (24-48) L Monocytes (%) (Auto) 8 % (0-9) Eosinophils (%) (Auto) 1 % (0-3) Basophils (%) (Auto) 0 % (0-3) Neutrophils # (Auto) 9.2 x10^3/uL (1.8-7.7) H Lymphocytes # (Auto) 1.1 x10^3/uL (1.0-4.8) Monocytes # (Auto) 0.9 x10^3/uL (0.0-1.1) Eosinophils # (Auto) 0.1 x10^3/uL (0.0-0.7) Basophils # (Auto) 0.0 x10^3/uL (0.0-0.2) Laboratory Tests 08/29/21 12:30 Vital Signs: Vital Signs Date Time Temp Pulse Resp B/P (MAP) Pulse Ox O2 Delivery O2 Flow Rate FiO2 08/29/21 12:11 98.2 67 20 104/73 (83) 98 Room Air 98.2 Vital Signs Date Time Temp Pulse Resp B/P (MAP) Pulse Ox O2 Delivery O2 Flow Rate FiO2 08/29/21 12:11 98.2 67 20 104/73 (83) 98 Room Air 98.2 EKG: EKG: EKG done at [address] Lowe at 1305 shows sinus rhythm with no ectopy at a rate of 67 with a QTC of 491 no STEMI [] Radiology/Procedures: Radiology/Procedures: STATUS: PRE ERORD. PHYSICIAN: DEDE RESTREPO APRN REASON: soa PROCEDURE: PORTABLE CHEST 1V EXAMINATION: Chest radiograph. VIEWS: 1 COMPARISON: 06/29/2019 INDICATION:56 years, Female, shortness of breath. FINDINGS: Borderline cardiomegaly, worsened since prior exam. Bilateral perihilar and basilar pulmonary reticulations. No pleural effusion or pneumothorax. No acute osseous process. 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 IMPRESSION: 1. Borderline cardiomegaly, worsened since prior exam. 2. Bilateral perihilar and basilar pulmonary reticulations, findings may reflect pulmonary vascular congestion, without evidence of edema. Electronically signed by: Irma Lamb MD (08/29/2021 1:00 PM) [facility] DICTATED and SIGNED BY: IRMA LAMB MD[] Course & Med Decision Making: Course & Med Decision Making Pertinent Labs and Imaging studies reviewed. (See chart for details) [id number] I spoke to patient and daughter at the bedside, patient denies having any dark black stools or notable blood in her stool, patient states that she saw her primary care on Tuesday and has been doing daily weights since then and she states that they have gained approximately 10 pounds since then. Rectal exam for fecal occult completed, and sent to lab, Dr. Desmond sena for admitting. Abel Disclaimer: Abel Disclaimer: This electronic medical record was generated, in whole or in part, using a voice recognition dictation system. Departure Departure Impression: Primary Impression: CHF (congestive heart failure) Qualified Codes: I50.9 - Heart failure, unspecified Additional Impressions: Anemia Qualified Codes: D64.9 - Anemia, unspecified Acute renal injury Hypokalemia Disposition: 09 ADMITTED INPATIENT Admitting Physician: LYLE Condition: STABLE Referrals: YAAKOV BARR (PCP) DEDE RESTREPO APRN Aug 29, 2021 13:37
[2021-08-29] MEDS ORDERED: SENNOSIDES 8.6 MG TABLET PO PRN (14:30)
[2021-08-29] MEDS ORDERED: ACETAMINOPHEN 325 MG TABLET. PO PRN (14:30)
[2021-08-29] MEDS ORDERED: LORazepam 0.5 MG TABLET PO PRN (14:30)
[2021-08-29] MEDS ORDERED: ZOLPIDEM 5 MG TABLET. PO PRN (14:30)
[2021-08-29] MEDS ORDERED: diphenhydrAMINE 50 MG/ML VIAL IVP PRN (14:30)
[2021-08-29] MEDS ORDERED: ONDANSETRON PF 4 MG/2 ML VIAL. IVP PRN (14:30)
[2021-08-29] MEDS ORDERED: diphenhydrAMINE HCL 25 MG CAPSULE PO PRN ×2 (14:30)
[2021-08-29] MEDS ORDERED: DOCUSATE SODIUM 100 MG CAPSULE. PO PRN (14:30)
[2021-08-29] MEDS ORDERED: PROCHLORPERAZINE 10 MG/2 ML VIAL. IV PRN (14:30)
[2021-08-29] MEDS ORDERED: DEXTROSE 50% 25 GM / 50ML DISP.SYRIN. IV PRN ×2 (14:30)
--- NOTE | 2021-08-29 14:42 | PDOC1 ---
History and Physical Date of Service: DOS: DATE: 08/29/21 TIME: 14:29 Chief Complaint: Chief Complain: Bilateral lower extremity swelling History of Present Illness: HPI: 56-year-old female with past medical history of diabetes mellitus type 2 on insulin, dyslipidemia, hypertension who comes in with bilateral lower leg swelling. Daughter is at bedside and able to translate [facility] [place] Patient states that she ran out of Lasix for the last 2 weeks and failed to renew her medications. Patient has been experiencing increasing swelling of her lower extremities and fatigue and shortness of breath. There may be some concerns also for peripheral neuropathy as patient does not have much sensation in her lower extremities. Patient does also endorse dyspnea upon exertion and orthopnea. Denies any chest pain, fevers, abdominal pain, dysuria, diarrhea, polyuria or polyphagia or polydipsia. According to the daughter, patient has been compliant with her insulin regimen. Of note, daughter states that patient was evaluated at and was diagnosed with CHF exacerbation. She was discharged with Lasix. Past Medical/Surgical History: PMH/PSH: Past Medical History: Diabetes-Type II, High Cholesterol, Hypertension Past Surgical History: TOE AMPUTATION Allergies: Allergies: Coded Allergies: No Known Drug Allergies (Unverified , 06/06/19) Family History: Family History: Reviewed with no relative findings in the chart Social History: Social History: Smoking Status: Never Smoker Alcohol Use: None Current Medications: Current Medications Current Medications Sennosides (Senna) 17.2 mg PRN BID PRN PO CONSTIPATION; Start 08/29/21 at 14:30 Docusate Sodium (Colace) 100 mg PRN DAILY PRN PO HARD STOOLS; Start 08/29/21 at 14:30 Ondansetron HCl (Zofran) 4 mg PRN Q6HRS PRN IVP NAUSEA/VOMITING, 1st CHOICE; Start 08/29/21 at 14:30 Dextrose (Dextrose 50%-Water Syringe) 12.5 gm PRN Q15MIN PRN IV SEE COMMENTS; Start 08/29/21 at 14:30 Acetaminophen (Tylenol) 650 mg PRN Q4HRS PRN PO TEMP OVER 100.4F OR MILD PAIN; Start 08/29/21 at 14:30 Lorazepam (Ativan) 0.5 mg PRN Q6HRS PRN PO ANXIETY / AGITATION; Start 08/29/21 at 14:30 Lorazepam (Ativan Inj) 0.25 mg PRN Q4HRS PRN IV ANXIETY / AGITATION; Start 08/29/21 at 14:30 Heparin Sodium (Porcine) (Heparin Sodium) 5,000 unit Q12HR SQ ; Start 08/29/21 at 21:00 Prochlorperazine Edisylate (Compazine) 10 mg PRN Q6HRS PRN IV NAUSEA/VOMITING, 2nd CHOICE; Start 08/29/21 at 14:30 Diphenhydramine HCl (Benadryl) 25 mg PRN Q6HRS PRN IVP ITCHING; Start 08/29/21 at 14:30 Diphenhydramine HCl (Benadryl) 25 mg PRN Q6HRS PRN PO ITCHING; Start 08/29/21 at 14:30 Diphenhydramine HCl (Benadryl) 25 mg PRN QHS PRN PO INSOMNIA, 1st CHOICE; Start 08/29/21 at 14:30 Zolpidem Tartrate (Ambien) 2.5 mg PRN QHS PRN PO INSOMNIA, 2nd CHOICE; Start 08/29/21 at 14:30 Insulin Human Lispro (HumaLOG) 0-7 UNITS TIDWMEALS SQ ; Start 08/29/21 at 17:00 Dextrose (Dextrose 50%-Water Syringe) 12.5 gm PRN Q15MIN PRN IV SEE COMMENTS; Start 08/29/21 at 14:30; Status UNV Insulin Glargine (Lantus Syringe) 10 unit BID SQ ; Start 08/29/21 at 21:00 Active Scripts Active Cefdinir 300 Mg Capsule 1 Cap PO BID 7 Days Ondansetron Odt (Ondansetron) 4 Mg Tab.rapdis 1 Tab PO PRN Q6-8HRS Cipro (Ciprofloxacin Hcl) 500 Mg Tablet 1 Tab PO BID 7 Days Miralax (Polyethylene Glycol 3350) 119 Gm Powder 17 Gm PO DAILY PRN dissolve in water Reported Novolin 70-30 Flexpen (Insulin NPH Hum/Reg Insulin Hm) 100 Unit/1 Ml Insuln.pen 100 Unit SQ BID Gemfibrozil 600 Mg Tablet 600 Mg PO BID Lisinopril-Hctz 20-12.5 Mg Tab (Lisinopril/Hydrochlorothiazide) 1 Each Tablet 1 Tab PO DAILY Metformin Hcl 1,000 Mg Tablet 1,000 Mg PO BIDWMEALS Glipizide 10 Mg Tablet 1 Tab PO BID ROS: Review of Systems Review of System REVIEW OF SYSTEMS: GENERAL: Denies weakness SKIN: No bruising, hair changes or rashes. EYES: No blurred, double or loss of vision. NOSE AND THROAT: No history of nosebleeds, hoarseness or sore throat. HEART: No history of palpitations, chest pain or shortness of breath on exertion. LUNGS: Positive shortness of breath GASTROINTESTINAL: Denies changes in appetite, nausea, vomiting, diarrhea or constipation. GENITOURINARY: No history of frequency, urgency, hesitancy or nocturia. NEUROLOGIC: Denies history of numbness, tingling, or tremor. PSYCHIATRIC: No history of panic, anxiety or depression. ENDOCRINE: No history of heat or cold intolerance, polyuria or polydipsia. EXTREMITIES: Positive for bilateral lower extremity swelling Physical Exam: Vital Signs: Vital Signs Date Time Temp Pulse Resp B/P (MAP) Pulse Ox O2 Delivery O2 Flow Rate FiO2 08/29/21 12:11 98.2 67 20 104/73 (83) 98 Room Air 98.2 Physcial Exam: General: Well developed, well nourished, no acute distress, well appearing HEENT: Pupils equally round and reactive to light, EOMI, no discharge, normal conjunctiva Neck: Supple, no nuchal rigidity, no JVD, trachea midline, no tenderness Cardiac: RRR, no murmurs, no gallops, no rubs Chest/Lungs: CTAB, no wheeze, no rhonchi, no crackles Abdomen: soft, non-distended, no guarding, no peritoneal signs, non-tender Back: No tenderness Extremities: +3 bilateral pedal edema, pulses intact, non-tender,capillary refill <3 sec bilateral upper and lower extremities, Neuro: Alert and oriented x 4, no focal deficits, normal speech Labs: Labs: Laboratory Tests Test 08/29/21 12:30 White Blood Count 11.3 x10^3/uL (4.0-11.0) Red Blood Count 2.73 x10^6/uL (3.50-5.40) Hemoglobin 7.8 g/dL (12.0-15.5) Hematocrit 23.0 % (36.0-47.0) Mean Corpuscular Volume 85 fL (79-100) Mean Corpuscular Hemoglobin 29 pg (25-35) Mean Corpuscular Hemoglobin Concent 34 g/dL (31-37) Red Cell Distribution Width 13.8 % (11.5-14.5) Platelet Count 290 x10^3/uL (140-400) Neutrophils (%) (Auto) 81 % (31-73) Lymphocytes (%) (Auto) 9 % (24-48) Monocytes (%) (Auto) 8 % (0-9) Eosinophils (%) (Auto) 1 % (0-3) Basophils (%) (Auto) 0 % (0-3) Neutrophils # (Auto) 9.2 x10^3/uL (1.8-7.7) Lymphocytes # (Auto) 1.1 x10^3/uL (1.0-4.8) Monocytes # (Auto) 0.9 x10^3/uL (0.0-1.1) Eosinophils # (Auto) 0.1 x10^3/uL (0.0-0.7) Basophils # (Auto) 0.0 x10^3/uL (0.0-0.2) Sodium Level 136 mmol/L (136-145) Potassium Level 3.3 mmol/L (3.5-5.1) Chloride Level 98 mmol/L (98-107) Carbon Dioxide Level 26 mmol/L (21-32) Anion Gap 12 (6-14) Blood Urea Nitrogen 62 mg/dL (7-20) Creatinine 2.7 mg/dL (0.6-1.0) Estimated GFR (Cockcroft-Gault) 18.4 BUN/Creatinine Ratio 23 (6-20) Glucose Level 141 mg/dL (70-99) Lactic Acid Level 0.7 mmol/L (0.4-2.0) Calcium Level 8.7 mg/dL (8.5-10.1) Total Bilirubin 0.5 mg/dL (0.2-1.0) Aspartate Amino Transf (AST/SGOT) 23 U/L (15-37) Alanine Aminotransferase (ALT/SGPT) 36 U/L (14-59) Alkaline Phosphatase 369 U/L (46-116) Troponin I High Sensitivity 12 ng/L (4-50) OH-Eel-M-Type Natriuretic Peptide 8923 pg/mL (0-124) Total Protein 6.8 g/dL (6.4-8.2) Albumin 2.2 g/dL (3.4-5.0) Albumin/Globulin Ratio 0.5 (1.0-1.7) Laboratory Tests Test 08/29/21 12:30 White Blood Count 11.3 x10^3/uL (4.0-11.0) Red Blood Count 2.73 x10^6/uL (3.50-5.40) Hemoglobin 7.8 g/dL (12.0-15.5) Hematocrit 23.0 % (36.0-47.0) Mean Corpuscular Volume 85 fL (79-100) Mean Corpuscular Hemoglobin 29 pg (25-35) Mean Corpuscular Hemoglobin Concent 34 g/dL (31-37) Red Cell Distribution Width 13.8 % (11.5-14.5) Platelet Count 290 x10^3/uL (140-400) Neutrophils (%) (Auto) 81 % (31-73) Lymphocytes (%) (Auto) 9 % (24-48) Monocytes (%) (Auto) 8 % (0-9) Eosinophils (%) (Auto) 1 % (0-3) Basophils (%) (Auto) 0 % (0-3) Neutrophils # (Auto) 9.2 x10^3/uL (1.8-7.7) Lymphocytes # (Auto) 1.1 x10^3/uL (1.0-4.8) Monocytes # (Auto) 0.9 x10^3/uL (0.0-1.1) Eosinophils # (Auto) 0.1 x10^3/uL (0.0-0.7) Basophils # (Auto) 0.0 x10^3/uL (0.0-0.2) Sodium Level 136 mmol/L (136-145) Potassium Level 3.3 mmol/L (3.5-5.1) Chloride Level 98 mmol/L (98-107) Carbon Dioxide Level 26 mmol/L (21-32) Anion Gap 12 (6-14) Blood Urea Nitrogen 62 mg/dL (7-20) Creatinine 2.7 mg/dL (0.6-1.0) Estimated GFR (Cockcroft-Gault) 18.4 BUN/Creatinine Ratio 23 (6-20) Glucose Level 141 mg/dL (70-99) Lactic Acid Level 0.7 mmol/L (0.4-2.0) Calcium Level 8.7 mg/dL (8.5-10.1) Total Bilirubin 0.5 mg/dL (0.2-1.0) Aspartate Amino Transf (AST/SGOT) 23 U/L (15-37) Alanine Aminotransferase (ALT/SGPT) 36 U/L (14-59) Alkaline Phosphatase 369 U/L (46-116) Troponin I High Sensitivity 12 ng/L (4-50) DU-Rnw-O-Type Natriuretic Peptide 8923 pg/mL (0-124) Total Protein 6.8 g/dL (6.4-8.2) Albumin 2.2 g/dL (3.4-5.0) Albumin/Globulin Ratio 0.5 (1.0-1.7) Images: Images PROCEDURE: PORTABLE CHEST 1V EXAMINATION: Chest radiograph. VIEWS: 1 COMPARISON: 06/29/2019 INDICATION:56 years, Female, shortness of breath. FINDINGS: Borderline cardiomegaly, worsened since prior exam. Bilateral perihilar and basilar pulmonary reticulations. No pleural effusion or pneumothorax. No acute osseous process. 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 IMPRESSION: 1. Borderline cardiomegaly, worsened since prior exam. 2. Bilateral perihilar and basilar pulmonary reticulations, findings may reflect pulmonary vascular congestion, without evidence of edema. Assessment/Plan Assessment/Plan Bilateral lower extremity edema JUANIS due to vasomotor nephropathy Hypokalemia Elevated BNP suggestive of volume overload History of diabetes mellitus type 2, insulin-dependent History of hypertension History of dyslipidemia History of CHF, LVEF of 40% on echo 06/29/2019 Admit to hospitalist service for further management Cardiology consult We will resume cardioprotective medications and attempt to optimize Hold on diuresis at this time, hold on JESSI/ARB's Pending records from [facility] Strict I's/O Avoid nephrotoxic agents PO and IV electrolyte replacement as needed R ISS and Accu-Cheks Heparin for DVT prophylaxis ADA/cardiac diet CODE STATUS full Discussed with RN and SW Disposition inpatient management as above DPOA: Daughter Justifications for Admission Other Justification JUANIS CHRISTY CARDENAS MD Aug 29, 2021 14:42
[2021-08-29 14:54] LABS: FECAL OB PT NEGATIVE (NEG)
[2021-08-29] MEDS ORDERED: CARV6.2511 PO (17:53)
[2021-08-29] MEDS ORDERED: ATOR40TA59 PO (17:53)
[2021-08-29] MEDS ORDERED: HYDR100T24 PO (17:53)
[2021-08-29] MEDS ORDERED: ASPI-886 PO (17:53)
[2021-08-29] MEDS ORDERED: INSU100V5 IJ (17:53)
[2021-08-29] MEDS ORDERED: NPH,100V5 SQ (17:53)
[2021-08-29] MEDS ORDERED: BUME1TAB3 PO (17:53)
[2021-08-29] MEDS: INSULIN LISPRO 300 UNITS/3 ML VIAL. SQ SCH (18:44)
[2021-08-29] MEDS: CARVEDILOL 12.5 MG TABLET. PO SCH (18:45)
[2021-08-29 19:43] VITALS: BP 196/79
[2021-08-29] MEDS: ATORVASTATIN CALCIUM 40 MG TABLET. PO SCH (21:46)
[2021-08-29] MEDS: INSULIN GLARGINE SYRINGE. SQ SCH (21:56)
[2021-08-29] MEDS: HEPARIN for SUB-Q USE 5,000 UNIT/ML VIAL. SQ SCH (21:56)
[2021-08-29 22:53] VITALS: BP 157/69
[2021-08-30 03:11] VITALS: BP 141/63
[2021-08-30 04:49] LABS: BASO % 1 % (0-3); EOS # 0.1 x10^3/uL (0.0-0.7); EOS % 1 % (0-3); HEMATOCRIT 21.1 % (36.0-47.0); HEMOGLOBIN 7.3 g/dL (12.0-15.5); LYMPH # 1.3 x10^3/uL (1.0-4.8); LYMPH % 14 % (24-48); MEAN CORPUSCULAR HEMOGLOBIN 29 pg (25-35); MEAN CORPUSCULAR HGB CONC 35 g/dL (31-37); MEAN CORPUSCULAR VOLUME 85 fL (79-100); MONO # 0.8 x10^3/uL (0.0-1.1); MONO % 9 % (0-9); NEUT # 7.2 x10^3/uL (1.8-7.7); NEUT % 76 % (31-73); PLATELET COUNT 275 x10^3/uL (140-400); RED BLOOD COUNT 2.49 x10^6/uL (3.50-5.40); RED CELL DISTRIBUTION WIDTH 13.8 % (11.5-14.5); WHITE BLOOD COUNT 9.5 x10^3/uL (4.0-11.0)
[2021-08-30 05:11] LABS: CALCIUM 8.4 mg/dL (8.5-10.1); CREATININE 2.7 mg/dL (0.6-1.0); GFR 18.4; MAGNESIUM 1.9 mg/dL (1.8-2.4); PHOSPHORUS 4.3 mg/dL (2.6-4.7); POTASSIUM 3.4 mmol/L (3.5-5.1)
[2021-08-30 07:00] VITALS: BP 169/72
[2021-08-30] MEDS: INSULIN LISPRO 300 UNITS/3 ML VIAL. SQ SCH ×4 (08:00→17:20)
[2021-08-30] MEDS: CARVEDILOL 12.5 MG TABLET. PO SCH ×2 (08:35→17:20)
[2021-08-30] MEDS: ASPIRIN ENTERIC COATED 81 MG TABLET.DR. PO SCH (08:35)
[2021-08-30] MEDS: INSULIN GLARGINE SYRINGE. SQ SCH ×2 (08:41→22:48)
[2021-08-30] MEDS: HEPARIN for SUB-Q USE 5,000 UNIT/ML VIAL. SQ SCH ×2 (08:42→22:49)
[2021-08-30 11:00] VITALS: BP 165/70
[2021-08-30] MEDS ORDERED: IV NORMAL SALINE 500ML BAG 500 ML IV ONE (11:30)
--- NOTE | 2021-08-30 11:31 | PDOC ---
[employer] PROGRESS NOTE Date of Service DOS: DATE: 08/30/21 TIME: 11:21 Chief Complaint Chief Complaint Bilateral lower extremity edema JUANIS due to vasomotor nephropathy Hypokalemia Elevated BNP suggestive of volume overload History of diabetes mellitus type 2, insulin-dependent History of hypertension History of dyslipidemia History of CHF, LVEF of 40% on echo 06/29/2019 Cardiorenal syndrome History of Present Illness History of Present Illness 08/30: Patient with low-grade fever overnight, T-max 100.2 F. States she has be en vaccinated against COVID-19. No open sores to bilateral feet. Patient's nurse obtain records from , states she is currently at her baseline kidney function. Echocardiogram pending, suspect cardiorenal syndrome. Continue IV Bumex. Reportedly ran out of her insulin at home. I will write for refills of her insulin at this time. Vitals/I&O Vitals/I&O: Vital Signs Date Time Temp Pulse Resp B/P (MAP) Pulse Ox O2 Delivery O2 Flow Rate FiO2 08/30/21 08:35 64 169/72 08/30/21 08:00 Room Air 08/30/21 07:00 99.4 20 94 99.4 I & O 08/29/21 08/29/21 08/30/21 15:00 23:00 07:00 Intake Total 60 ml Balance 60 ml Physical Exam General: Alert, Cooperative Heart: Regular rate Lungs: Crackles Abdomen: Soft, No tenderness Extremities: No cyanosis Skin: No rashes Labs Labs: Laboratory Tests Test 08/29/21 12:30 08/29/21 13:59 08/29/21 17:34 08/29/21 21:04 White Blood Count 11.3 x10^3/uL (4.0-11.0) Red Blood Count 2.73 x10^6/uL (3.50-5.40) Hemoglobin 7.8 g/dL (12.0-15.5) Hematocrit 23.0 % (36.0-47.0) Mean Corpuscular Volume 85 fL (79-100) Mean Corpuscular Hemoglobin 29 pg (25-35) Mean Corpuscular Hemoglobin Concent 34 g/dL (31-37) Red Cell Distribution Width 13.8 % (11.5-14.5) Platelet Count 290 x10^3/uL (140-400) Neutrophils (%) (Auto) 81 % (31-73) Lymphocytes (%) (Auto) 9 % (24-48) Monocytes (%) (Auto) 8 % (0-9) Eosinophils (%) (Auto) 1 % (0-3) Basophils (%) (Auto) 0 % (0-3) Neutrophils # (Auto) 9.2 x10^3/uL (1.8-7.7) Lymphocytes # (Auto) 1.1 x10^3/uL (1.0-4.8) Monocytes # (Auto) 0.9 x10^3/uL (0.0-1.1) Eosinophils # (Auto) 0.1 x10^3/uL (0.0-0.7) Basophils # (Auto) 0.0 x10^3/uL (0.0-0.2) Sodium Level 136 mmol/L (136-145) Potassium Level 3.3 mmol/L (3.5-5.1) Chloride Level 98 mmol/L (98-107) Carbon Dioxide Level 26 mmol/L (21-32) Anion Gap 12 (6-14) Blood Urea Nitrogen 62 mg/dL (7-20) Creatinine 2.7 mg/dL (0.6-1.0) Estimated GFR (Cockcroft-Gault) 18.4 BUN/Creatinine Ratio 23 (6-20) Glucose Level 141 mg/dL (70-99) Lactic Acid Level 0.7 mmol/L (0.4-2.0) Calcium Level 8.7 mg/dL (8.5-10.1) Total Bilirubin 0.5 mg/dL (0.2-1.0) Aspartate Amino Transf (AST/SGOT) 23 U/L (15-37) Alanine Aminotransferase (ALT/SGPT) 36 U/L (14-59) Alkaline Phosphatase 369 U/L (46-116) Troponin I High Sensitivity 12 ng/L (4-50) IR-Zlm-O-Type Natriuretic Peptide 8923 pg/mL (0-124) Total Protein 6.8 g/dL (6.4-8.2) Albumin 2.2 g/dL (3.4-5.0) Albumin/Globulin Ratio 0.5 (1.0-1.7) Stool Occult Blood Negative (NEG) Glucose (Fingerstick) 187 mg/dL (70-99) 207 mg/dL (70-99) Test 08/30/21 04:00 08/30/21 07:53 08/30/21 10:47 White Blood Count 9.5 x10^3/uL (4.0-11.0) Red Blood Count 2.49 x10^6/uL (3.50-5.40) Hemoglobin 7.3 g/dL (12.0-15.5) Hematocrit 21.1 % (36.0-47.0) Mean Corpuscular Volume 85 fL (79-100) Mean Corpuscular Hemoglobin 29 pg (25-35) Mean Corpuscular Hemoglobin Concent 35 g/dL (31-37) Red Cell Distribution Width 13.8 % (11.5-14.5) Platelet Count 275 x10^3/uL (140-400) Neutrophils (%) (Auto) 76 % (31-73) Lymphocytes (%) (Auto) 14 % (24-48) Monocytes (%) (Auto) 9 % (0-9) Eosinophils (%) (Auto) 1 % (0-3) Basophils (%) (Auto) 1 % (0-3) Neutrophils # (Auto) 7.2 x10^3/uL (1.8-7.7) Lymphocytes # (Auto) 1.3 x10^3/uL (1.0-4.8) Monocytes # (Auto) 0.8 x10^3/uL (0.0-1.1) Eosinophils # (Auto) 0.1 x10^3/uL (0.0-0.7) Basophils # (Auto) 0.0 x10^3/uL (0.0-0.2) Sodium Level 136 mmol/L (136-145) Potassium Level 3.4 mmol/L (3.5-5.1) Chloride Level 101 mmol/L (98-107) Carbon Dioxide Level 27 mmol/L (21-32) Anion Gap 8 (6-14) Blood Urea Nitrogen 58 mg/dL (7-20) Creatinine 2.7 mg/dL (0.6-1.0) Estimated GFR (Cockcroft-Gault) 18.4 Glucose Level 157 mg/dL (70-99) Calcium Level 8.4 mg/dL (8.5-10.1) Phosphorus Level 4.3 mg/dL (2.6-4.7) Magnesium Level 1.9 mg/dL (1.8-2.4) Glucose (Fingerstick) 150 mg/dL (70-99) 250 mg/dL (70-99) Assessment and Plan Assessmemt and Plan Problems Medical Problems: (1) Acute renal injury Status: Acute (2) Anemia Status: Acute (3) CHF (congestive heart failure) Status: Acute (4) Hypokalemia Status: Acute Comment Review of Relevant I have reviewed the following items barrera (where applicable) has been applied. Medications: Current Medications Medications (Trade) Dose Ordered Sig/Tg Route PRN Reason Start Time Stop Time Status Last Admin Dose Admin Heparin Sodium (Porcine) (Heparin Sodium) 5,000 unit Q12HR SQ 08/29/21 21:00 08/30/21 08:42 Insulin Human Lispro (HumaLOG) 0-7 UNITS TIDWMEALS SQ 08/29/21 17:00 08/29/21 18:44 Insulin Glargine (Lantus Syringe) 10 unit BID SQ 08/29/21 21:00 08/30/21 08:41 Carvedilol (Coreg) 12.5 mg BIDWMEALS PO 08/29/21 18:00 08/30/21 08:35 Aspirin (Ecotrin) 81 mg DAILY PO 08/30/21 09:00 08/30/21 08:35 Atorvastatin Calcium (Lipitor) 40 mg QHS PO 08/29/21 21:00 08/29/21 21:46 Justifications for Admission Other Justification JUANIS GREGORIO FRAUSTO MD August 30, 2021 11:30
[2021-08-30] MEDS: BUMETANIDE 1 MG/4 ML VIAL. IV SCH (12:39)
[2021-08-30 15:00] VITALS: BP 167/77
[2021-08-30 19:48] VITALS: BP 134/62
--- NOTE | 2021-08-30 21:08 | RAD ---
EXAM: RENAL ULTRASOUND CLINICAL HISTORY: Reason: JUANIS / Spl. Instructions: / History: COMPARISON: None available. TECHNIQUE: Ultrasound examination of the bilateral kidneys and urinary bladder was performed. FINDINGS: Right kidney measures 10.7 cm in long axis. No hydronephrosis. Left kidney measures 14.1 cm in long axis. No hydronephrosis. Bladder is partially distended and not well evaluated. Visualized portions aorta and IVC are unremarkable. IMPRESSION: No hydronephrosis. Electronically signed by: James Reyes MD (08/30/2021 9:05 PM) KRISTOFER
[2021-08-30 22:40] VITALS: BP 179/78
[2021-08-30] MEDS: ATORVASTATIN CALCIUM 40 MG TABLET. PO SCH (22:44)
--- NOTE | 2021-08-30 22:59 | PDOC2 ---
CARDIOLOGY CONSULT NOTE DATE OF SERVICE: DATE: 08/30/21 TIME: 22:59 CHIEF COMPLAINT: Shortness of breath HPI: 56-year-old woman with past medical history of diastolic heart failure and diabetes who presents to the hospital in the setting of decompensated diastolic heart failure due to lack of diuretics. The patient is and translation was obtained by the patient's who was at bedside. The patient appar ently ran out of diuretics 2 weeks ago and has been having worsening shortness of breath. She currently denies any chest pain. She had extensive work-up through [facility] and ultimately discharged from their heart failure clinic as she did not have insurance and unable to afford any medications. PMHX: Diabetes Diastolic heart failure Hypertension SOCHX: No alcohol, tobacco or illicit drug use FAMHX: Noncontributory CURRENT MEDS: Current Medications Medications (Trade) Dose Ordered Sig/Tg Route PRN Reason Start Time Stop Time Status Last Admin Dose Admin Aspirin (Ecotrin) 81 mg DAILY PO 08/30/21 09:00 08/30/21 08:35 Bumetanide (Bumex) 2 mg BID92 IV 08/30/21 14:00 08/30/21 12:39 Hydralazine HCl (Apresoline) 100 mg TID PO 08/30/21 14:00 08/30/21 22:44 ALLERGIES: Allergies Coded Allergies Type Severity Reaction Last Updated Verified No Known Drug Allergies 06/06/19 No ROS: Negative for 10 out of 14 systems reviewed unless otherwise mentioned above in HPI PHYSICAL EXAM: Vital Signs/I&O: Vital Signs Date Time Temp Pulse Resp B/P (MAP) Pulse Ox O2 Delivery O2 Flow Rate FiO2 08/30/21 22:44 66 179/78 08/30/21 22:40 97.9 18 100 Room Air 97.9 I & O 08/29/21 08/29/21 08/30/21 15:00 23:00 07:00 Intake Total 60 ml Balance 60 ml Physical Exam: The patient appeared well nourished and normally developed. Head exam is unremarkable. No scleral icterus or corneal arcus noted. Neck is without jugular venous distension, thyromegaly, or carotid bruits. Carotid upstrokes are brisk bilaterally. Lungs are clear to auscultation and percussion. Cardiac exam reveals the PMI to be normally sized and situated. Rhythm is regular. First and second heart sounds normal. No murmurs, rubs or gallops. Abdominal exam reveals normal bowel sounds, no masses, no organomegaly and no aortic enlargement. Extremities are notable for 1+ edema and both femoral and pedal pulses are normal. Msk: No traumua Neuro: No focal deficits DIAGNOSTIC TESTING: Labs reviewed. Extensive outside hospital [facility] records reviewed Lab Laboratory Tests Test 08/30/21 04:00 08/30/21 07:53 08/30/21 10:47 08/30/21 21:12 White Blood Count 9.5 x10^3/uL (4.0-11.0) Red Blood Count 2.49 x10^6/uL (3.50-5.40) L Hemoglobin 7.3 g/dL (12.0-15.5) L Hematocrit 21.1 % (36.0-47.0) L Mean Corpuscular Volume 85 fL (79-100) Mean Corpuscular Hemoglobin 29 pg (25-35) Mean Corpuscular Hemoglobin Concent 35 g/dL (31-37) Red Cell Distribution Width 13.8 % (11.5-14.5) Platelet Count 275 x10^3/uL (140-400) Neutrophils (%) (Auto) 76 % (31-73) H Lymphocytes (%) (Auto) 14 % (24-48) L Monocytes (%) (Auto) 9 % (0-9) Eosinophils (%) (Auto) 1 % (0-3) Basophils (%) (Auto) 1 % (0-3) Neutrophils # (Auto) 7.2 x10^3/uL (1.8-7.7) Lymphocytes # (Auto) 1.3 x10^3/uL (1.0-4.8) Monocytes # (Auto) 0.8 x10^3/uL (0.0-1.1) Eosinophils # (Auto) 0.1 x10^3/uL (0.0-0.7) Basophils # (Auto) 0.0 x10^3/uL (0.0-0.2) Sodium Level 136 mmol/L (136-145) Potassium Level 3.4 mmol/L (3.5-5.1) L Chloride Level 101 mmol/L (98-107) Carbon Dioxide Level 27 mmol/L (21-32) Anion Gap 8 (6-14) Blood Urea Nitrogen 58 mg/dL (7-20) H Creatinine 2.7 mg/dL (0.6-1.0) H Estimated GFR (Cockcroft-Gault) 18.4 Glucose Level 157 mg/dL (70-99) H Calcium Level 8.4 mg/dL (8.5-10.1) L Phosphorus Level 4.3 mg/dL (2.6-4.7) Glucose (Fingerstick) 150 mg/dL (70-99) H 250 mg/dL (70-99) H 271 mg/dL (70-99) H Laboratory Tests 08/30/21 04:00 ASSESSMENT: 1. Acute on chronic decompensated diastolic heart failure 2. Diabetes 3. Hypertension PLAN: 1. We will reinitiate her home Bumex therapy. Continue home medications. Monitor overnight and likely discharge in the next 24 to 48 hours HUBERT WELLS MD August 30, 2021 22:59
[2021-08-31 02:39] VITALS: BP 145/65
[2021-08-31 03:25] LABS: HEMOGLOBIN A1C 8.7 % (4.8-5.6)
[2021-08-31 04:31] LABS: BASO # 0.1 x10^3/uL (0.0-0.2); BASO % 1 % (0-3); EOS # 0.2 x10^3/uL (0.0-0.7); EOS % 1 % (0-3); HEMATOCRIT 22.3 % (36.0-47.0); HEMOGLOBIN 7.8 g/dL (12.0-15.5); LYMPH # 1.1 x10^3/uL (1.0-4.8); LYMPH % 10 % (24-48); MEAN CORPUSCULAR HEMOGLOBIN 30 pg (25-35); MEAN CORPUSCULAR HGB CONC 35 g/dL (31-37); MEAN CORPUSCULAR VOLUME 84 fL (79-100); MONO # 0.8 x10^3/uL (0.0-1.1); MONO % 7 % (0-9); NEUT # 8.8 x10^3/uL (1.8-7.7); NEUT % 81 % (31-73); PLATELET COUNT 298 x10^3/uL (140-400); RED BLOOD COUNT 2.65 x10^6/uL (3.50-5.40); RED CELL DISTRIBUTION WIDTH 13.9 % (11.5-14.5); WHITE BLOOD COUNT 10.9 x10^3/uL (4.0-11.0)
[2021-08-31 05:13] LABS: CALCIUM 8.4 mg/dL (8.5-10.1); CREATININE 2.6 mg/dL (0.6-1.0); GFR 19.2; MAGNESIUM 1.9 mg/dL (1.8-2.4); POTASSIUM 3.6 mmol/L (3.5-5.1)
--- NOTE | 2021-08-31 06:05 | RAD ---
INDICATION: Reason: Bilater lower extremity swelling / Spl. Instructions: / History: COMPARISON: None. TECHNIQUE: Grayscale, color and doppler ultrasound images were obtained of the bilateral lower extrem ity venous vasculature. RIGHT: No thrombus identified in the common femoral vein, femoral vein, popliteal vein. LEFT: No thrombus identified in the common femoral vein, femoral vein, popliteal vein. IMPRESSION: * No thrombus identified in deep venous system of bilateral lower extremities. Some limitation and calf vessels secondary to overlying structures obscuring. * Edema soft tissues. Electronically signed by: Gerard Freeman MD (08/31/2021 6:03 AM) [id number]
--- NOTE | 2021-08-31 06:07 | EKG ---
[facility] [address] [place] [address] Test Date: 2021-08-29 Test Time: 13:02:15 Pat Name: LEXI RODRÍGUEZ Department: Room: Gender: F Project Asst: : 1965 Requested By: DEDE RESTREPO Order Number: [id number] Reading MD: Measurements Intervals [place] Rate: 67 P: WA: QRS: -43 QRSD: 84 T: 128 QT: 462 QTc: 491 Interpretive Statements IRREGULAR RHYTHM, NO P-WAVE FOUND ABNORMAL LEFT AXIS DEVIATION R-S TRANSITION ZONE IN V LEADS DISPLACED TO THE LEFT LEFT ANTERIOR FASCICULAR BLOCK CONSIDER LEFT VENTRICULAR HYPERTROPHY T ABNORMALITY IN HIGH LATERAL LEADS PROLONGED QT ABNORMAL ECG RI6.01
[2021-08-31 07:00] VITALS: BP 151/67
[2021-08-31] MEDS: CARVEDILOL 12.5 MG TABLET. PO SCH ×2 (09:11→16:56)
[2021-08-31] MEDS: ASPIRIN ENTERIC COATED 81 MG TABLET.DR. PO SCH (09:11)
[2021-08-31] MEDS: BUMETANIDE 1 MG/4 ML VIAL. IV SCH ×2 (09:11→14:20)
[2021-08-31] MEDS: HEPARIN for SUB-Q USE 5,000 UNIT/ML VIAL. SQ SCH ×2 (09:18→21:10)
[2021-08-31] MEDS: INSULIN LISPRO 300 UNITS/3 ML VIAL. SQ SCH ×3 (09:18→17:03)
[2021-08-31] MEDS: INSULIN GLARGINE SYRINGE. SQ SCH ×2 (09:19→21:10)
--- NOTE | 2021-08-31 10:17 | PDOC ---
TREMAINESTONE JERMAN 08/31/21 1017: CARDIO Progress Notes Date and Time Date of Service 08/31/21 Time of Evaluation 1015 Subjective Subjective: No Chest Pain, No shortness of breath, No Palpitations Vitals Vitals Vital Signs Date Time Temp Pulse Resp B/P (MAP) Pulse Ox O2 Delivery O2 Flow Rate FiO2 08/31/21 09:11 65 151/67 08/31/21 07:00 98.6 18 96 Room Air 98.6 Weight Weight [ ] Input and Output Intake and Output Intake and Output 08/31/21 07:00 Intake Total 960 ml Balance 960 ml Intake Oral 960 ml # Voids 4 Laboratory Labs Laboratory Tests Test 08/30/21 10:47 08/30/21 21:12 08/31/21 03:45 08/31/21 07:50 Glucose (Fingerstick) 250 mg/dL (70-99) 271 mg/dL (70-99) 191 mg/dL (70-99) White Blood Count 10.9 x10^3/uL (4.0-11.0) Red Blood Count 2.65 x10^6/uL (3.50-5.40) Hemoglobin 7.8 g/dL (12.0-15.5) Hematocrit 22.3 % (36.0-47.0) Mean Corpuscular Volume 84 fL (79-100) Mean Corpuscular Hemoglobin 30 pg (25-35) Mean Corpuscular Hemoglobin Concent 35 g/dL (31-37) Red Cell Distribution Width 13.9 % (11.5-14.5) Platelet Count 298 x10^3/uL (140-400) Neutrophils (%) (Auto) 81 % (31-73) Lymphocytes (%) (Auto) 10 % (24-48) Monocytes (%) (Auto) 7 % (0-9) Eosinophils (%) (Auto) 1 % (0-3) Basophils (%) (Auto) 1 % (0-3) Neutrophils # (Auto) 8.8 x10^3/uL (1.8-7.7) Lymphocytes # (Auto) 1.1 x10^3/uL (1.0-4.8) Monocytes # (Auto) 0.8 x10^3/uL (0.0-1.1) Eosinophils # (Auto) 0.2 x10^3/uL (0.0-0.7) Basophils # (Auto) 0.1 x10^3/uL (0.0-0.2) Sodium Level 136 mmol/L (136-145) Potassium Level 3.6 mmol/L (3.5-5.1) Chloride Level 100 mmol/L (98-107) Carbon Dioxide Level 26 mmol/L (21-32) Anion Gap 10 (6-14) Blood Urea Nitrogen 51 mg/dL (7-20) Creatinine 2.6 mg/dL (0.6-1.0) Estimated GFR (Cockcroft-Gault) 19.2 Glucose Level 215 mg/dL (70-99) Calcium Level 8.4 mg/dL (8.5-10.1) Magnesium Level 1.9 mg/dL (1.8-2.4) Physical Exam HEENT: Neck Supple W Full Motion Chest: Symmetric LUNGS: Other (diminished bases) Heart: RRR Abdomen: Soft N/T Extremities: Other (2+ bilateral LE edema ) Neurology: alert, oriented, follow commands Assessment Assessment 1. Acute on chronic systolic CHF; s/p IV Bumex. Follows with [facility] HF clinic 2. Cardiomyopathy; Echo 06/2019 with LVEF 45% 3. HTN; labile 4. HLP; statin 5. DM2 6. JUANIS on CKD; Cr stable 7. Anemia 8. H/o CVA with right side hemiparesis 9. Hypokalemia; replaced Recommendations Ongoing diuresis with monitoring of labs 2000cc FR. 2Gm Na diet Daily weight. Continue Coreg, hydralazine Add amlodipine for BP control No ACEi/ARB due to [place] Recent ischemic evaluation below Supportive care RHC at [facility] DATE: 06/26/2021 FINDINGS OF RIGHT HEART CATHETERIZATION: Right atrium: Mean right atrial pressure is 11 mmHg with oxygen saturation of 68%. Right ventricle: Systolic pressure is 52, diastolic is 13 mmHg. Pulmonary artery: 54/23/36 mmHg with oxygen saturation of 69%. Pulmonary capillary wedge pressure: Mean is 23 mmHg with a V-wave of 30. Cardiac output: Thermodilution: 5.8 minutes with index of 3.4 L/minute per square meter. Cardiac output Roger: 5.7 minutes of 3.3 L/minute per square meter. Transpulmonary gradient: 13 mmHg. Diastolic pulmonary gradient: 3 mmHg. Pulmonary vascular resistance is 2.2 Wood units. Noninvasive blood pressure was 147/69/99 mmHg with oxygen saturation of 99% and a heart rate of 75 beats per minute. FINAL IMPRESSION: Increased right and left-sided filling pressures. Increased pulmonary artery pressure secondary to increased pulmonary capillary wedge pressure. Normal cardiac output and cardiac index. NM PET/CT MYOCARDIAL IMAGING PERFUSION STRESS AND REST DATE: 06/25/21 Impression: Normal pharmacologic stress myocardial perfusion and function. Globally decreased myocardial blood flow with stress and myocardial flow reserve despite evidence of adequate stress response suggestive of three-vessel epicardial and/or microvascular disease. Pulmonary edema with moderate bilateral pleural effusions and partial lower lobe atelectasis. Justicifation of Admission Dx: Justifications for Admission: Justification of Admission Dx: N/A HUBERT WELLS MD 09/01/21 0911: CARDIO Progress Notes Plan Plan Late entry for 08/31/2021 Patient seen and examined. Agree with above nurse practitioner note STONE PENALOZA APRN August 31, 2021 10:17 HUBERT WELLS MD September 01, 2021 09:11
[2021-08-31 10:45] VITALS: BP 186/77
--- NOTE | 2021-08-31 13:40 | PDOC ---
[facility] PROGRESS NOTE Date of Service DOS: DATE: 08/31/21 TIME: 13:39 Chief Complaint Chief Complaint Bilateral lower extremity edema JUANIS due to vasomotor nephropathy Hypokalemia Elevated BNP suggestive of volume overload History of diabetes mellitus type 2, insulin-dependent History of hypertension History of dyslipidemia History of CHF, LVEF of 40% on echo 06/29/2019 Cardiorenal syndrome History of Present Illness History of Present Illness 08/31: No documentation of urine output. Patient states she is breathing well, c urrently on room air. She has been peeing but likely flushing the toilet. Discussed with RN, will place hat in the toilet to monitor urine output. For now we will continue to diurese with IV Bumex. 08/30: Patient with low-grade fever overnight, T-max 100.2 F. States she has been vaccinated against COVID-19. No open sores to bilateral feet. Patient's nurse obtain records from , states she is currently at her baseline kidney function. Echocardiogram pending, suspect cardiorenal syndrome. Continue IV B umex. Reportedly ran out of her insulin at home. I will write for refills of her insulin at this time. Vitals/I&O Vitals/I&O: Vital Signs Date Time Temp Pulse Resp B/P (MAP) Pulse Ox O2 Delivery O2 Flow Rate FiO2 08/31/21 10:45 97.6 65 18 186/77 (113) 99 Room Air 97.6 I & O 08/30/21 08/30/21 08/31/21 15:00 23:00 07:00 Intake Total 480 ml 480 ml Balance 480 ml 480 ml Physical Exam General: Alert, Cooperative Heart: Regular rate Lungs: Crackles Abdomen: Soft, No tenderness Extremities: No cyanosis Skin: No rashes Labs Labs: Laboratory Tests Test 08/30/21 21:12 08/31/21 03:45 08/31/21 07:50 08/31/21 11:36 Glucose (Fingerstick) 271 mg/dL (70-99) 191 mg/dL (70-99) 232 mg/dL (70-99) White Blood Count 10.9 x10^3/uL (4.0-11.0) Red Blood Count 2.65 x10^6/uL (3.50-5.40) Hemoglobin 7.8 g/dL (12.0-15.5) Hematocrit 22.3 % (36.0-47.0) Mean Corpuscular Volume 84 fL (79-100) Mean Corpuscular Hemoglobin 30 pg (25-35) Mean Corpuscular Hemoglobin Concent 35 g/dL (31-37) Red Cell Distribution Width 13.9 % (11.5-14.5) Platelet Count 298 x10^3/uL (140-400) Neutrophils (%) (Auto) 81 % (31-73) Lymphocytes (%) (Auto) 10 % (24-48) Monocytes (%) (Auto) 7 % (0-9) Eosinophils (%) (Auto) 1 % (0-3) Basophils (%) (Auto) 1 % (0-3) Neutrophils # (Auto) 8.8 x10^3/uL (1.8-7.7) Lymphocytes # (Auto) 1.1 x10^3/uL (1.0-4.8) Monocytes # (Auto) 0.8 x10^3/uL (0.0-1.1) Eosinophils # (Auto) 0.2 x10^3/uL (0.0-0.7) Basophils # (Auto) 0.1 x10^3/uL (0.0-0.2) Sodium Level 136 mmol/L (136-145) Potassium Level 3.6 mmol/L (3.5-5.1) Chloride Level 100 mmol/L (98-107) Carbon Dioxide Level 26 mmol/L (21-32) Anion Gap 10 (6-14) Blood Urea Nitrogen 51 mg/dL (7-20) Creatinine 2.6 mg/dL (0.6-1.0) Estimated GFR (Cockcroft-Gault) 19.2 Glucose Level 215 mg/dL (70-99) Calcium Level 8.4 mg/dL (8.5-10.1) Magnesium Level 1.9 mg/dL (1.8-2.4) Assessment and Plan Assessmemt and Plan Problems Medical Problems: (1) Acute renal injury Status: Acute (2) Anemia Status: Acute (3) CHF (congestive heart failure) Status: Acute (4) Hypokalemia Status: Acute Comment Review of Relevant I have reviewed the following items barrera (where applicable) has been applied. Medications: Current Medications Medications (Trade) Dose Ordered Sig/Tg Route PRN Reason Start Time Stop Time Status Last Admin Dose Admin Bumetanide (Bumex) 2 mg [id number] IV 08/30/21 14:00 08/31/21 09:11 Hydralazine HCl (Apresoline) 100 mg TID PO 08/30/21 14:00 08/31/21 09:11 Justifications for Admission Other Justification JUANIS GREGORIO FRAUSTO MD August 31, 2021 13:40
[2021-08-31 14:55] VITALS: BP 167/73
--- NOTE | 2021-08-31 16:46 | NUR ---
SS following for discharge planning. SS reviewed pt chart and discussed with pt RN. Pt is from home and is currently on room air. Pt on IV Bumex. SS will continue to follow for discharge planning.
[2021-08-31 19:39] VITALS: BP 189/81
[2021-08-31] MEDS: ATORVASTATIN CALCIUM 40 MG TABLET. PO SCH (21:02)
[2021-08-31 22:37] VITALS: BP 138/64
[2021-09-01 02:33] VITALS: BP 128/60
[2021-09-01 04:46] LABS: BASO % 0 % (0-3); EOS # 0.1 x10^3/uL (0.0-0.7); EOS % 1 % (0-3); HEMATOCRIT 21.6 % (36.0-47.0); HEMOGLOBIN 7.3 g/dL (12.0-15.5); LYMPH # 1.1 x10^3/uL (1.0-4.8); LYMPH % 10 % (24-48); MEAN CORPUSCULAR HEMOGLOBIN 29 pg (25-35); MEAN CORPUSCULAR HGB CONC 34 g/dL (31-37); MEAN CORPUSCULAR VOLUME 84 fL (79-100); MONO # 0.8 x10^3/uL (0.0-1.1); MONO % 7 % (0-9); NEUT # 8.9 x10^3/uL (1.8-7.7); NEUT % 81 % (31-73); PLATELET COUNT 285 x10^3/uL (140-400); RED BLOOD COUNT 2.57 x10^6/uL (3.50-5.40); RED CELL DISTRIBUTION WIDTH 13.7 % (11.5-14.5)
[2021-09-01 05:03] LABS: CALCIUM 8.4 mg/dL (8.5-10.1); CREATININE 2.7 mg/dL (0.6-1.0); GFR 18.4; MAGNESIUM 1.8 mg/dL (1.8-2.4); POTASSIUM 3.4 mmol/L (3.5-5.1)
--- NOTE | 2021-09-01 06:30 | NUR ---
C/o right labia majora hard and swollen x 1 week. WMP applied. Has knotted hair in back of hair, family combing her hair ouit. Resp non-labored and even.
[2021-09-01 07:00] VITALS: BP 171/73
[2021-09-01] MEDS: INSULIN LISPRO 300 UNITS/3 ML VIAL. SQ SCH ×2 (08:00→11:46)
[2021-09-01] MEDS: CARVEDILOL 12.5 MG TABLET. PO SCH (08:28)
--- NOTE | 2021-09-01 08:49 | NUR ---
Pt's FSBS 64 this am, pt consumed 240cc juice. Pt's FSBS 136 when rechecked after breakfast. This RN notified Dr. Astudillo. Orders received to hold Lantus this am. Sliding scale and Lantus nonadministered by this RN.
[2021-09-01] MEDS: INSULIN GLARGINE SYRINGE. SQ SCH (08:56)
--- NOTE | 2021-09-01 09:30 | PDOC ---
STONE PENALOZA FOILING MACHINE ADJUSTER 09/01/21 0930: CARDIO Progress Notes Date and Time Date of Service 09/01/21 Time of Evaluation 0930 Subjective Subjective: No Chest Pain, No shortness of breath, No Palpitations, Other (swelling improved ) Vitals Vitals Vital Signs Date Time Temp Pulse Resp B/P (MAP) Pulse Ox O2 Delivery O2 Flow Rate FiO2 09/01/21 08:30 Room Air 09/01/21 08:28 60 171/73 09/01/21 07:00 99.0 18 97 99.0 Weight Weight [ ] Input and Output Intake and Output Intake and Output 09/01/21 07:00 Intake Total 940 ml Output Total 1400 ml Balance -460 ml Intake Oral 940 ml Output Urine Total 1400 ml # Bowel Movements 1 Laboratory Labs Laboratory Tests Test 08/31/21 11:36 08/31/21 16:45 08/31/21 19:41 09/01/21 04:15 Glucose (Fingerstick) 232 mg/dL (70-99) 225 mg/dL (70-99) 243 mg/dL (70-99) White Blood Count 11.0 x10^3/uL (4.0-11.0) Red Blood Count 2.57 x10^6/uL (3.50-5.40) Hemoglobin 7.3 g/dL (12.0-15.5) Hematocrit 21.6 % (36.0-47.0) Mean Corpuscular Volume 84 fL (79-100) Mean Corpuscular Hemoglobin 29 pg (25-35) Mean Corpuscular Hemoglobin Concent 34 g/dL (31-37) Red Cell Distribution Width 13.7 % (11.5-14.5) Platelet Count 285 x10^3/uL (140-400) Neutrophils (%) (Auto) 81 % (31-73) Lymphocytes (%) (Auto) 10 % (24-48) Monocytes (%) (Auto) 7 % (0-9) Eosinophils (%) (Auto) 1 % (0-3) Basophils (%) (Auto) 0 % (0-3) Neutrophils # (Auto) 8.9 x10^3/uL (1.8-7.7) Lymphocytes # (Auto) 1.1 x10^3/uL (1.0-4.8) Monocytes # (Auto) 0.8 x10^3/uL (0.0-1.1) Eosinophils # (Auto) 0.1 x10^3/uL (0.0-0.7) Basophils # (Auto) 0.0 x10^3/uL (0.0-0.2) Sodium Level 138 mmol/L (136-145) Potassium Level 3.4 mmol/L (3.5-5.1) Chloride Level 101 mmol/L (98-107) Carbon Dioxide Level 28 mmol/L (21-32) Anion Gap 9 (6-14) Blood Urea Nitrogen 50 mg/dL (7-20) Creatinine 2.7 mg/dL (0.6-1.0) Estimated GFR (Cockcroft-Gault) 18.4 Glucose Level 106 mg/dL (70-99) Calcium Level 8.4 mg/dL (8.5-10.1) Magnesium Level 1.8 mg/dL (1.8-2.4) Test 09/01/21 07:57 09/01/21 08:39 Glucose (Fingerstick) 64 mg/dL (70-99) 136 mg/dL (70-99) Physical Exam HEENT: Neck Supple W Full Motion Chest: Symmetric LUNGS: Other (diminished bases) Heart: RRR Abdomen: Soft N/T Extremities: Other (1+ bilateral LE edema ) Neurology: alert, oriented, follow commands Assessment Assessment 1. Acute on chronic diastolic CHF; s/p IV Bumex. 2. Cardiomyopathy; Echo 06/23 with LVEF 60% as noted below 3. HTN; better controlled 4. HLP; statin 5. DM2 6. JUANIS on CKD; previously baseline near 1.7 per nephrology. Recent admission 07/21 with CR consistently at 2.7 range. 7. Anemia 8. H/o CVA 9. Hypokalemia; replaced Recommendations Transition to oral Bumex 2000cc FR. 2Gm Na diet Continue Coreg, hydralazine Add Imdur No ACEi/ARB due to JUANIS Supportive care Follow up with HF clinic and nephrology R[facility] at [facility] DATE: 06/26/2021 FINDINGS OF RIGHT HEART CATHETERIZATION: Right atrium: Mean right atrial pressure is 11 mmHg with oxygen saturation of 68%. Right ventricle: Systolic pressure is 52, diastolic is 13 mmHg. Pulmonary artery: 54/23/36 mmHg with oxygen saturation of 69%. Pulmonary capillary wedge pressure: Mean is 23 mmHg with a V-wave of 30. Cardiac output: Thermodilution: 5.8 minutes with index of 3.4 L/minute per square meter. Cardiac output Roger: 5.7 minutes of 3.3 L/minute per square meter. Transpulmonary gradient: 13 mmHg. Diastolic pulmonary gradient: 3 mmHg. Pulmonary vascular resistance is 2.2 Wood units. Noninvasive blood pressure was 147/69/99 mmHg with oxygen saturation of 99% and a heart rate of 75 beats per minute. FINAL IMPRESSION: Increased right and left-sided filling pressures. Increased pulmonary artery pressure secondary to increased pulmonary capillary wedge pressure. Normal cardiac output and cardiac index. NM PET/CT MYOCARDIAL IMAGING PERFUSION STRESS AND REST DATE: 06/25/21 Impression: Normal pharmacologic stress myocardial perfusion and function. Globally decreased myocardial blood flow with stress and myocardial flow reserve despite evidence of adequate stress response suggestive of three-vessel epicardial and/or microvascular disease. Pulmonary edema with moderate bilateral pleural effusions and partial lower lobe atelectasis. 06/22/21 - 2D + DOPPLER ECHO Interpretation Summary Normal LV size and systolic function with an estimated ejection fraction of 60%. There is suggestion of significant LV diastolic dysfunction and elevated left atrial pressures Normal RV size and function The atria are normal in size The IVC is dilated The estimated PA systolic pressure is 45 to 50 mmHg Justicifation of Admission Dx: Justifications for Admission: Justification of Admission Dx: N/A HUBERT WELLS MD 09/01/21 1458: CARDIO Progress Notes Plan Plan The patient was seen and interviewed as well as examined at the bedside. The chart was reviewed. The case was discussed. Agree with the plan of care. STONE PENALOZA APRN September 01, 2021 09:30 HUBERT WELLS MD September 01, 2021 14:58
[2021-09-01] MEDS: ASPIRIN ENTERIC COATED 81 MG TABLET.DR. PO SCH (09:53)
[2021-09-01] MEDS: BUMETANIDE 1 MG/4 ML VIAL. IV SCH ×2 (09:54→14:00)
[2021-09-01] MEDS: HEPARIN for SUB-Q USE 5,000 UNIT/ML VIAL. SQ SCH (09:55)
[2021-09-01 10:44] VITALS: BP 145/66
--- NOTE | 2021-09-01 11:29 | PDOC ---
[facility] PROGRESS NOTE Date of Service DOS: DATE: 09/01/21 TIME: 11:26 Chief Complaint Chief Complaint Bilateral lower extremity edema JUANIS due to vasomotor nephropathy Hypokalemia Elevated BNP suggestive of volume overload History of diabetes mellitus type 2, insulin-dependent History of hypertension History of dyslipidemia History of CHF, LVEF of 40% on echo 06/29/2019 Cardiorenal syndrome History of Present Illness History of Present Illness 09/01: Afebrile. Hypertensive this morning. She is breathing comfortably on room air right now. She may discharge home today after urine dipstick in my opinion and confirmed this with cardiology. In review of her records from , her tyre builder has been in discussion about placing her on JESSI/ARB when kidney function stabilizes. Creatinine appears to be stable at 2.7 and EGFR consistent with CKD 4. I recommended to patient to follow-up with her nephrologis upon discharge. Greater than 30 minutes spent managing discharge of this patient. 08/31: No documentation of urine output. Patient states she is breathing well, currently on room air. She has been peeing but likely flushing the toilet. Discussed with RN, will place hat in the toilet to monitor urine output. For now we will continue to diurese with IV Bumex. 08/30: Patient with low-grade fever overnight, T-max 100.2 F. States she has been vaccinated against COVID-19. No open sores to bilateral feet. Patient's nurse obtain records from , states she is currently at her baseline kidney function. Echocardiogram pending, suspect cardiorenal syndrome. Continue IV Bumex. Reportedly ran out of her insulin at home. I will write for refills of her insulin at this time. Vitals/I&O Vitals/I&O: Vital Signs Date Time Temp Pulse Resp B/P (MAP) Pulse Ox O2 Delivery O2 Flow Rate FiO2 09/01/21 10:44 98.3 64 18 145/66 (92) 97 Room Air 98.3 I & O 08/31/21 08/31/21 09/01/21 15:00 23:00 07:00 Intake Total 360 ml 280 ml 300 ml Output Total 1400 ml Balance 360 ml 280 ml -1100 ml Physical Exam General: Alert, Cooperative Heart: Regular rate Lungs: Crackles Abdomen: Soft, No tenderness Extremities: No cyanosis Skin: No rashes Labs Labs: Laboratory Tests Test 08/31/21 11:36 08/31/21 16:45 08/31/21 19:41 09/01/21 04:15 Glucose (Fingerstick) 232 mg/dL (70-99) 225 mg/dL (70-99) 243 mg/dL (70-99) White Blood Count 11.0 x10^3/uL (4.0-11.0) Red Blood Count 2.57 x10^6/uL (3.50-5.40) Hemoglobin 7.3 g/dL (12.0-15.5) Hematocrit 21.6 % (36.0-47.0) Mean Corpuscular Volume 84 fL (79-100) Mean Corpuscular Hemoglobin 29 pg (25-35) Mean Corpuscular Hemoglobin Concent 34 g/dL (31-37) Red Cell Distribution Width 13.7 % (11.5-14.5) Platelet Count 285 x10^3/uL (140-400) Neutrophils (%) (Auto) 81 % (31-73) Lymphocytes (%) (Auto) 10 % (24-48) Monocytes (%) (Auto) 7 % (0-9) Eosinophils (%) (Auto) 1 % (0-3) Basophils (%) (Auto) 0 % (0-3) Neutrophils # (Auto) 8.9 x10^3/uL (1.8-7.7) Lymphocytes # (Auto) 1.1 x10^3/uL (1.0-4.8) Monocytes # (Auto) 0.8 x10^3/uL (0.0-1.1) Eosinophils # (Auto) 0.1 x10^3/uL (0.0-0.7) Basophils # (Auto) 0.0 x10^3/uL (0.0-0.2) Sodium Level 138 mmol/L (136-145) Potassium Level 3.4 mmol/L (3.5-5.1) Chloride Level 101 mmol/L (98-107) Carbon Dioxide Level 28 mmol/L (21-32) Anion Gap 9 (6-14) Blood Urea Nitrogen 50 mg/dL (7-20) Creatinine 2.7 mg/dL (0.6-1.0) Estimated GFR (Cockcroft-Gault) 18.4 Glucose Level 106 mg/dL (70-99) Calcium Level 8.4 mg/dL (8.5-10.1) Magnesium Level 1.8 mg/dL (1.8-2.4) Test 09/01/21 07:57 09/01/21 08:39 Glucose (Fingerstick) 64 mg/dL (70-99) 136 mg/dL (70-99) Assessment and Plan Assessmemt and Plan Problems Medical Problems: (1) Acute renal injury Status: Acute (2) Anemia Status: Acute (3) CHF (congestive heart failure) Status: Acute (4) Hypokalemia Status: Acute Comment Review of Relevant I have reviewed the following items barrera (where applicable) has been applied. Medications: Current Medications Medications (Trade) Dose Ordered Sig/Tg Route PRN Reason Start Time Stop Time Status Last Admin Dose Admin Amlodipine Besylate (Norvasc) 10 mg DAILY PO 09/01/21 09:00 09/01/21 09:53 Justifications for Admission Other Justification JUANIS GREGORIO FRAUSTO MD September 01, 2021 11:29
[2021-09-01] MEDS ORDERED: FERROUS SULFATE 325 MG TABLET. PO SCH (12:00)
--- NOTE | 2021-09-01 12:32 | PDOC3 ---
Discharge Summary Visit Information Date of Admission: Aug 29, 2021 Date of Discharge: September 01, 2021 Final Diagnosis Problems Medical Problems: (1) Acute renal injury Status: Acute (2) Anemia Status: Acute (3) CHF (congestive heart failure) Status: Acute (4) Hypokalemia Status: Acute Brief Hospital Course Allergies Allergies Coded Allergies Type Severity Reaction Last Updated Verified No Known Drug Allergies 06/06/19 No Vital Signs Vital Signs Date Time Temp Pulse Resp B/P (MAP) Pulse Ox O2 Delivery O2 Flow Rate FiO2 09/01/21 10:44 98.3 64 18 145/66 (92) 97 Room Air 98.3 Lab Results Laboratory Tests Test 08/30/21 21:12 08/31/21 03:45 08/31/21 07:50 08/31/21 11:36 Glucose (Fingerstick) 271 mg/dL (70-99) 191 mg/dL (70-99) 232 mg/dL (70-99) White Blood Count 10.9 x10^3/uL (4.0-11.0) Red Blood Count 2.65 x10^6/uL (3.50-5.40) Hemoglobin 7.8 g/dL (12.0-15.5) Hematocrit 22.3 % (36.0-47.0) Mean Corpuscular Volume 84 fL (79-100) Mean Corpuscular Hemoglobin 30 pg (25-35) Mean Corpuscular Hemoglobin Concent 35 g/dL (31-37) Red Cell Distribution Width 13.9 % (11.5-14.5) Platelet Count 298 x10^3/uL (140-400) Neutrophils (%) (Auto) 81 % (31-73) Lymphocytes (%) (Auto) 10 % (24-48) Monocytes (%) (Auto) 7 % (0-9) Eosinophils (%) (Auto) 1 % (0-3) Basophils (%) (Auto) 1 % (0-3) Neutrophils # (Auto) 8.8 x10^3/uL (1.8-7.7) Lymphocytes # (Auto) 1.1 x10^3/uL (1.0-4.8) Monocytes # (Auto) 0.8 x10^3/uL (0.0-1.1) Eosinophils # (Auto) 0.2 x10^3/uL (0.0-0.7) Basophils # (Auto) 0.1 x10^3/uL (0.0-0.2) Sodium Level 136 mmol/L (136-145) Potassium Level 3.6 mmol/L (3.5-5.1) Chloride Level 100 mmol/L (98-107) Carbon Dioxide Level 26 mmol/L (21-32) Anion Gap 10 (6-14) Blood Urea Nitrogen 51 mg/dL (7-20) Creatinine 2.6 mg/dL (0.6-1.0) Estimated GFR (Cockcroft-Gault) 19.2 Glucose Level 215 mg/dL (70-99) Calcium Level 8.4 mg/dL (8.5-10.1) Magnesium Level 1.9 mg/dL (1.8-2.4) Test 08/31/21 16:45 08/31/21 19:41 09/01/21 04:15 09/01/21 07:57 Glucose (Fingerstick) 225 mg/dL (70-99) 243 mg/dL (70-99) 64 mg/dL (70-99) White Blood Count 11.0 x10^3/uL (4.0-11.0) Red Blood Count 2.57 x10^6/uL (3.50-5.40) Hemoglobin 7.3 g/dL (12.0-15.5) Hematocrit 21.6 % (36.0-47.0) Mean Corpuscular Volume 84 fL (79-100) Mean Corpuscular Hemoglobin 29 pg (25-35) Mean Corpuscular Hemoglobin Concent 34 g/dL (31-37) Red Cell Distribution Width 13.7 % (11.5-14.5) Platelet Count 285 x10^3/uL (140-400) Neutrophils (%) (Auto) 81 % (31-73) Lymphocytes (%) (Auto) 10 % (24-48) Monocytes (%) (Auto) 7 % (0-9) Eosinophils (%) (Auto) 1 % (0-3) Basophils (%) (Auto) 0 % (0-3) Neutrophils # (Auto) 8.9 x10^3/uL (1.8-7.7) Lymphocytes # (Auto) 1.1 x10^3/uL (1.0-4.8) Monocytes # (Auto) 0.8 x10^3/uL (0.0-1.1) Eosinophils # (Auto) 0.1 x10^3/uL (0.0-0.7) Basophils # (Auto) 0.0 x10^3/uL (0.0-0.2) Sodium Level 138 mmol/L (136-145) Potassium Level 3.4 mmol/L (3.5-5.1) Chloride Level 101 mmol/L (98-107) Carbon Dioxide Level 28 mmol/L (21-32) Anion Gap 9 (6-14) Blood Urea Nitrogen 50 mg/dL (7-20) Creatinine 2.7 mg/dL (0.6-1.0) Estimated GFR (Cockcroft-Gault) 18.4 Glucose Level 106 mg/dL (70-99) Calcium Level 8.4 mg/dL (8.5-10.1) Magnesium Level 1.8 mg/dL (1.8-2.4) Test 09/01/21 08:39 09/01/21 11:36 Glucose (Fingerstick) 136 mg/dL (70-99) 184 mg/dL (70-99) Laboratory Tests Test 08/31/21 16:45 08/31/21 19:41 09/01/21 04:15 09/01/21 07:57 Glucose (Fingerstick) 225 mg/dL (70-99) 243 mg/dL (70-99) 64 mg/dL (70-99) White Blood Count 11.0 x10^3/uL (4.0-11.0) Red Blood Count 2.57 x10^6/uL (3.50-5.40) Hemoglobin 7.3 g/dL (12.0-15.5) Hematocrit 21.6 % (36.0-47.0) Mean Corpuscular Volume 84 fL (79-100) Mean Corpuscular Hemoglobin 29 pg (25-35) Mean Corpuscular Hemoglobin Concent 34 g/dL (31-37) Red Cell Distribution Width 13.7 % (11.5-14.5) Platelet Count 285 x10^3/uL (140-400) Neutrophils (%) (Auto) 81 % (31-73) Lymphocytes (%) (Auto) 10 % (24-48) Monocytes (%) (Auto) 7 % (0-9) Eosinophils (%) (Auto) 1 % (0-3) Basophils (%) (Auto) 0 % (0-3) Neutrophils # (Auto) 8.9 x10^3/uL (1.8-7.7) Lymphocytes # (Auto) 1.1 x10^3/uL (1.0-4.8) Monocytes # (Auto) 0.8 x10^3/uL (0.0-1.1) Eosinophils # (Auto) 0.1 x10^3/uL (0.0-0.7) Basophils # (Auto) 0.0 x10^3/uL (0.0-0.2) Sodium Level 138 mmol/L (136-145) Potassium Level 3.4 mmol/L (3.5-5.1) Chloride Level 101 mmol/L (98-107) Carbon Dioxide Level 28 mmol/L (21-32) Anion Gap 9 (6-14) Blood Urea Nitrogen 50 mg/dL (7-20) Creatinine 2.7 mg/dL (0.6-1.0) Estimated GFR (Cockcroft-Gault) 18.4 Glucose Level 106 mg/dL (70-99) Calcium Level 8.4 mg/dL (8.5-10.1) Magnesium Level 1.8 mg/dL (1.8-2.4) Test 09/01/21 08:39 09/01/21 11:36 Glucose (Fingerstick) 136 mg/dL (70-99) 184 mg/dL (70-99) Brief Hospital Course Ms. Mendoza is a 56 old female who presented with diastolic congestive heart failure, CKD4. Consultation was placed to cardiology. She was diuresed with IV Bumex with close monitoring of renal function. 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 Discharge Information Condition at Discharge: Improved Disposition/Orders: D/C to Home Scheduled Aspirin (Aspirin Ec) 81 Mg Tablet., 1 TAB PO DAILY for HEART HEALTH, #30 Ref 3 (Reported) Entered as Reported by: GILMA HAINES on 08/29/211752 Last Action: Continued on 08/29/211752 by GILMA HAINES Atorvastatin Calcium (Atorvastatin Calcium) 40 Mg Tablet, 1 TAB PO QHS for HLD, #90 Ref 3 (Reported) Entered as Reported by: GILMA HAINES on 08/29/211752 Last Action: Continued on 08/29/211752 by GILMA HAINES Bumetanide (Bumetanide) 1 Mg Tablet, 3 TAB PO BID for CHF, #90 Ref 1 (Reported) Entered as Reported by: GILMA HAINES on 08/29/211752 Last Action: Edited on 08/30/21935 by GILMA HAINES Carvedilol (Carvedilol ) 6.25 Mg Tablet, 6.25 MG PO BIDWMEALS for CARDIAC, (Reported) Entered as Reported by: GILMA HAINES on 08/29/211752 Last Action: New Order on 08/29/211752 by GILMA HAINES Hydralazine Hcl (Hydralazine Hcl) 100 Mg Tablet, 1 TAB PO TID for HTN, #90 Ref 5 (Reported) Entered as Reported by: GILMA HAINES on 08/29/211752 Last Action: Edited on 08/30/21935 by GILMA HAINES Insulin Regular, Human (Humulin R) 100 Unit/1 Ml Vial, 9 UNIT IJ TIDAC for DM II, (Reported) Entered as Reported by: GILMA HAINES on 08/29/211752 Last Action: New Order on 08/29/211752 by GILMA HAINES Nph, Human Insulin Isophane (Novolin N) 100 Unit/1 Ml Vial, 22 UNIT SQ QHS for DMII, (Reported) Entered as Reported by: GILMA HAINES on 08/29/211752 Last Action: New Order on 08/29/211752 by GILMA HAINES Discontinued Medications Gemfibrozil (Gemfibrozil) 600 Mg Tablet, 600 MG PO BID for HLD, (Reported) Entered as Reported by: MAXIMUS QUINONES RN on 06/29/191950 Last Action: Discontinued on 08/29/211746 by GILMA HAINES Glipizide (Glipizide) 10 Mg Tablet, 1 TAB PO BID for antidiabetic, #60 Ref 5 (Reported) Entered as Reported by: MAXIMUS QUINONES RN on 06/29/191950 Last Action: Discontinued on 08/29/211746 by GILMA HAINES Insulin NPH Hum/Reg Insulin Hm (Novolin 70-30 Flexpen) 100 Unit/1 Ml Insuln.pen, 100 UNIT SQ BID for antidiabetic, (Reported) Entered as Reported by: MAXIMUS QUINONES RN on 06/29/191950 Last Action: Discontinued on 08/29/211746 by GILMA HAINES Lisinopril/Hydrochlorothiazide (Lisinopril-Hctz 20-12.5 Mg Tab) 1 Each Tablet, 1 TAB PO DAILY for htn, #30 Ref 5 (Reported) Entered as Reported by: MAXIMUS QUINONES RN on 06/29/191950 Last Action: Discontinued on 08/29/211746 by GILMA HAINES Metformin Hcl (Metformin Hcl) 1,000 Mg Tablet, 1,000 MG PO BIDWMEALS for antidiabetic, (Reported) Entered as Reported by: MAXIMUS QUINONES RN on 06/29/191950 Last Action: Discontinued on 08/29/211746 by GILMA HAINES Justicifation of Admission Dx: Justifications for Admission: Justification of Admission Dx: N/A GREGORIO FRAUSTO MD September 01, 2021 12:32
[2021-09-01] MEDS ORDERED: ISOS30TA68 PO (14:17)
[2021-09-01 15:00] VITALS: BP 113/66
--- NOTE | 2021-09-01 15:40 | NUR ---
Pt left unit at 1535 by wheelchair via private vehicle, accompanied by daughter. Pt's IV removed without complication, VSS. Discharge paperwork discussed with daughter, daughter translated to pt. Education provided in pt's primary language, Kyrgyz.
[2021-09-02] MEDS ORDERED: ISOSORBIDE MONONITRATE ER 30 MG TAB.ER.24H PO SCH (09:00)
== END 2021-09-01 15:45 | disposition home or self-care (01) | DRG 291 ==
LOC: ER 11:48 → 6 SOUTH 14:20
PROVIDERS: ADMIT Internal Medicine; ATTEND Internal Medicine
DX: I13.0 Hypertensive heart and chronic kidney disease with heart failure and stage 1 through stage 4 chronic kidney disease, or unspecified chronic kidney disease (principal); I50.43 Acute on chronic combined systolic (congestive) and diastolic (congestive) heart failure; N17.0 Acute kidney failure with tubular necrosis; J98.11 Atelectasis; N18.4 Chronic kidney disease, stage 4 (severe); I69.351 Hemiplegia and hemiparesis following cerebral infarction affecting right dominant side; I42.9 Cardiomyopathy, unspecified; D64.9 Anemia, unspecified; E11.22 Type 2 diabetes mellitus with diabetic chronic kidney disease; E78.00 Pure hypercholesterolemia, unspecified; E78.5 Hyperlipidemia, unspecified; E87.6 Hypokalemia; Z79.4 Long term (current) use of insulin; Z79.82 Long term (current) use of aspirin; Z79.84 Long term (current) use of oral hypoglycemic drugs; Z79.899 Other long term (current) drug therapy; Z91.14 Patient's other noncompliance with medication regimen
CPT/HCPCS: 36415; 71045; 76770; 80048; 80053; 82274; 82962; 83036; 83605; 83735; 83880; 84100; 84484; 85025; 93005; 93970; J1644; J1815; J3490; 99285-25; G0378